=== PATIENT | male | born 1980 | race Caucasian/White ===

== ENCOUNTER 2017-08-30 02:06 | Inpatient (IN) | payer OTHER ==
[2017-08-30] VITALS (25 sets, daily range): BP systolic 107–131; BP diastolic 55–78; PULSE 49–231; RESP 16–24; TEMP 97.6–98.4; O2SAT 85–99
[~2017-08-30 02:06] MED LIST: LEVA500T33 PO; MULTTAB50; Z.0.NO CURRENT MEDS
[2017-08-30] MEDS ORDERED: AMIODARONE HCL 150 MG/3 ML VIAL ONE (02:20)
[2017-08-30] MEDS ORDERED: METO-309 PO (02:21)
[2017-08-30] MEDS ORDERED: LISI2.5T3 PO (02:21)
[2017-08-30] MEDS ORDERED: SODIUM CHLORID 0.9% 500 ML INJ 500 ML IV ONE (02:30)
--- NOTE | 2017-08-30 02:31 | PD ---
HPI Chief Complaint: Chest Pain Time Seen by Provider: 02:15 Travel History International Travel<30 days: No Contact w/Intl Traveler<30days: No Traveled to known affect area: No History of Present Illness HPI The patient is a 36 year old male who presents to the [facility] emergency department with a history of awakening suddenly from sound sleep with palpitations, sensation that his heart was racing, with shortness of breath, and incontinence of stool. The patient reports that he was sweating. The patient immediately came to the emergency department. The patient was noted to have a heart rate in the 230s with a wide complex tachycardia. The patient is awake and alert. The patient denies having any chest pain. He reports that he was well prior to going to sleep. The patient does report having a past medical history of tetralogy of Fallot. The patient has had cardiac surgeries related to this, his most recent cardiac surgery was a pulmonic valve replacement done 3 years ago. On review of systems otherwise, the patient denies having any recent fevers, cough, congestion, neck pain, chest pain or shortness of breath prior to this, abdominal pain, vomiting, diarrhea, urinary symptoms, or neurologic symptoms. [facility] Past Medical History Narrative Medical The patient's past medical history is significant for tetralogy of Fallot, history of hemoptysis, history of anxiety disorder, hypertension. Autoimmune Disease: No Anxiety: Yes (OCCASSIONALLY) Depression: No Heart Rhythm Problems: No Cancer: No Cardiovascular Problems: Yes (tetralogy of fallot - 5 yrs. old when surgery, right arm shunt 8 months old) High Cholesterol: No Chest Pain: Yes Congestive Heart Failure: No Diminished Hearing: No Endocrine: No Genitourinary: No Hypertension: Yes Immune Disorder: No Implanted Vascular Access Dvce: Yes Musculoskeletal: No Neurologic: No Psychiatric: Yes Reproductive: No Respiratory: Yes Sleep Apnea: No Past Surgical History Narrative Surgical The patient's past surgical history is significant a right arm AV fistula, open heart surgery twice, pulmonic valve replacement. 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 ARTERY FROM RIGHT ARM. ) Social History Alcohol Use: No Tobacco Use: No Substance Use: No Allergies-Medications (Allergen,Severity, Reaction): Coded Allergies: No Known Allergies (Verified Allergy, Unknown, 08/30/17) Reported Meds & Prescriptions Reported Meds & Active Scripts Active Reported Multi Vitamin Mens (Multiple Vitamin) Mens Tab DAILY Lisinopril 2.5 Mg Tab Unknown Dose PO DAILY Lopressor (Metoprolol Tartrate) 50 Mg Tab 25 PO DAILY Review of Systems Except as stated in HPI: all other systems reviewed are Neg General / Constitutional: No: Fever Eyes: No: Visual changes HENT: Positive: Lightheadedness, No: Headaches Cardiovascular: Positive: Palpitations, Tachycardia, Diaphoresis, Dyspnea on exertion, No: Chest Pain or Discomfort Respiratory: Positive: Shortness of Breath Gastrointestinal: Positive: Diarrhea, Other (incontinence of stool), No: Nausea , Vomiting, Abdominal Pain, Hematemesis, Hematochezia, Indigestion, Loss of Appetite Genitourinary: No: Dysuria Musculoskeletal: No: Pain Skin: No Rash Neurologic: Positive: Dizziness, No: Weakness, Focal Abnormalities, Change in Mentation, Sensory Disturbance Psychiatric: No: Depression Endocrine: No: Polydipsia Hematologic/Lymphatic: No: Easy Bruising Physical Exam Narrative General: The patient is a well-developed well-nourished male, uncomfortable appearing on arrival, slightly diaphoretic. Head and Neck exam: Head is normocephalic atraumatic. Eyes: EOMI, pupils are equal round and reactive to light. Nose: Midline septum with pink mucous membranes Mouth: Dentition unremarkable. Moist mucus membranes. Posterior oropharynx is not erythematous. No tonsillar hypertrophy. Uvula midline. Airway patent. Neck: No palpable lymphadenopathy. No nuchal rigidity. No thyromegaly. Cardiovascular: Regular sounding tachycardia with a rate in the 200s on telemetry without murmurs, gallops, or rubs audible at this increased rate. Lungs: Clear to auscultation bilaterally. No wheezes, rhonchi, or rales. Abdomen: Soft, without tenderness to palpation in all 4 quadrants of the abdomen. No guarding, rebound, or rigidity. Normal bowel sounds are audible. No tenderness on palpation of McBurney's point. Extremities: No clubbing, cyanosis, or edema. 2+ pulses in all 4 extremities. No calf tenderness on palpation. Back: No costovertebral angle tenderness to palpation. Neurologic Exam: Grossly nonfocal. Skin Exam: No rash noted. Intact skin that is warm and slightly damp. Data Data Last Documented VS Vital Signs Date Time Temp Pulse Resp B/P (MAP) Pulse Ox O2 Delivery O2 Flow Rate FiO2 08/30/17 03:00 79 16 114/59 (77) 98 Nasal Cannula 08/30/17 02:50 3.00 Orders Orders Amiodarone Inj (Cordarone Inj) (08/30/17 02:20) Sodium Chlorid 0.9% 500 Ml Inj (Ns 500 M (08/30/17 02:30) Electrocardiogram (08/30/17 02:24) B-Type Natriuretic Peptide (08/30/17 02:24) Ckmb (Isoenzyme) Profile (08/30/17 02:24) Complete Blood Count With Diff (08/30/17 02:24) Comprehensive Metabolic Panel (08/30/17 02:24) Magnesium (Mg) (08/30/17 02:24) Prothrombin Time / Inr (Pt) (08/30/17 02:24) Act Partial Throm Time (Ptt) (08/30/17 02:24) Troponin I (08/30/17 02:24) Lipase (08/30/17 02:24) Chest, Single Ap (08/30/17 02:24) Ecg Monitoring (08/30/17 02:24) Bilateral Bp Monitoring (08/30/17 02:24) Iv Access Insert/Monitor (08/30/17 02:24) Oximetry (08/30/17 02:24) Oxygen Administration (08/30/17 02:24) Sodium Chloride 0.9% Flush (Ns Flush) (08/30/17 02:30) Consult Cardiology (08/30/17 ) Blood Pressure (08/30/17 02:32) Vital Signs (08/30/17 02:32) Dextrose 5% In Wate... W/Amiodarone Inj (08/30/17 02:32) Sodium Chloride 0.9% Flush (Ns Flush) (08/30/17 02:45) Adenosine Inj (Adenocard Inj) (08/30/17 02:45) Adenosine Inj (Adenocard Inj) (08/30/17 02:45) Midazolam Inj (Versed Inj) (08/30/17 03:00) Midazolam Inj (Versed Inj) (08/30/17 02:50) CKMB (08/30/17 02:30) CKMB% (08/30/17 02:30) (Hub Use Only)Inp Phy Cons/Ref (08/30/17 ) Midazolam Inj (Versed Inj) (08/30/17 03:30) Potassium Chloride Eff (K-Lyte Cl Eff) (08/30/17 03:45) Aspirin Chew (Aspirin Chew) (08/30/17 03:45) Admit Order (Ed Use Only) (08/30/17 03:50) Steamfitter / Telemetry ARTIE.Q8H (08/30/17 03:50) Vital Signs (Adult) Q4H (08/30/17 03:50) Diet Heart Healthy (08/30/17 Breakfast) Activity Oob With Assistance (08/30/17 03:50) Notify Dr: Other (08/30/17 03:50) Labs Laboratory Tests Test 08/30/17 02:30 White Blood Count 13.2 TH/MM3 Red Blood Count 5.39 MIL/MM3 Hemoglobin 15.4 GM/DL Hematocrit 45.7 % Mean Corpuscular Volume 84.8 FL Mean Corpuscular Hemoglobin 28.7 PG Mean Corpuscular Hemoglobin Concent 33.8 % Red Cell Distribution Width 12.9 % Platelet Count 260 TH/MM3 Mean Platelet Volume 9.3 FL Neutrophils (%) (Auto) 52.2 % Lymphocytes (%) (Auto) 37.1 % Monocytes (%) (Auto) 9.0 % Eosinophils (%) (Auto) 1.3 % Basophils (%) (Auto) 0.4 % Neutrophils # (Auto) 6.9 TH/MM3 Lymphocytes # (Auto) 4.9 TH/MM3 Monocytes # (Auto) 1.2 TH/MM3 Eosinophils # (Auto) 0.2 TH/MM3 Basophils # (Auto) 0.1 TH/MM3 CBC Comment DIFF FINAL Differential Comment Prothrombin Time 11.0 SEC Prothromb Time International Ratio 1.1 RATIO Activated Partial Thromboplast Time 23.6 SEC Blood Urea Nitrogen 11 MG/DL Creatinine 1.16 MG/DL Random Glucose 201 MG/DL Total Protein 7.6 GM/DL Albumin 4.2 GM/DL Calcium Level 8.7 MG/DL Magnesium Level 2.5 MG/DL Alkaline Phosphatase 124 U/L Aspartate Amino Transf (AST/SGOT) 37 U/L Alanine Aminotransferase (ALT/SGPT) 54 U/L Total Bilirubin 0.4 MG/DL Sodium Level 138 MEQ/L Potassium Level 3.2 MEQ/L Chloride Level 101 MEQ/L Carbon Dioxide Level 23.2 MEQ/L Anion Gap 14 MEQ/L Estimat Glomerular Filtration Rate 72 ML/MIN Total Creatine Kinase 191 U/L Creatine Kinase MB 2.7 NG/ML Troponin I LESS THAN 0.02 NG/ML B-Type Natriuretic Peptide 47 PG/ML Lipase 87 U/L [facility] Medical Decision Making Medical Screen Exam Complete: Yes Emergency Medical Condition: Yes Medical Record Reviewed: Yes Interpretation(s) Last Impressions Chest X-Ray 08/30/17 0224 Signed Impressions: Service Date/Time: Friday, August 30, 2017 02:40 - CONCLUSION: Minimal bibasilar atelectasis. Neto Ware MD Differential Diagnosis SVT with bundle-branch block, versus V. tach with pulse Narrative Course During the course of the patients emergency department visit, the patients history, examination, and differential diagnosis were reviewed with the patient. The patient was placed on a desk monitor with oximetry and frequent blood pressure monitoring. The patient had IV access obtained and blood work sent for analysis. An EKG was done on arrival back to the room that shows a heart rate in the 230s, but appears to be a wide complex tachycardia. Pacer pads were applied to the patient's chest. The patient was initially provided amiodarone 150 mg IV, normal saline a 500 mL bolus support his blood pressure. Unfortunately, the amiodarone had no effect and the it professional on-call was called regarding this patient's case. He recommended administration of adenosine. Adenosine 6 mg and then 12 mg had no effect to abort this tachycardic rhythm. I then discussed the patient's case again with the it professional who did agree with the plan to proceed with synchronized cardioversion. The patient was provided in total 3.5 mg of Versed for sedation. The patient was cardioverted using synchronized cardioversion at 100 J. This was successful. The patient's repeat ECG reveals a sinus rhythm, right bundle branch block which the patient has had a history of previously. The patients laboratory studies were reviewed and remarkable for a white count of 13.2, hemoglobin 15.4, platelets 260 with 9 monocytes, CMP is remarkable for a potassium of 3.2 which was supplemented orally, glucose 201, alkaline phosphatase 124, he became 191, troponin I less than 0.02, BNP 47, lipase 87. PT 11, PTT 23.6 Radiology studies were reviewed and remarkable for a chest x-ray that shows minimal bibasilar atelectasis. The patients results were discussed with the patient, including the plan of care. I explained that further testing and/ or monitoring is indicated based on the patients history, examination, and/ or laboratory findings. Therefore, I recommended admission for additional evaluation. The patient expressed understanding and was agreeable with this plan. The patient was admitted to the hospital in guarded condition and [facility] Critical Care Narrative Aggregate critical care time was 45 minutes. Time to perform other separately billable procedures was not included in the critical care time. My time did not include minutes spent treating any other patients simultaneously or on activities that did not directly contribute to the patient's treatment. The services I provided to this patient were to treat and/or prevent clinically significant deterioration that could result in: Cardiac arrhythmia that leads to cardiac arrest, versus respiratory failure I provided critical care services requiring my management, as noted below: Chart data review, documentation time, medication orders and management, vital sign assessments/reviewing monitor data, ordering and reviewing lab tests, ordering and interpreting/reviewing x-rays and diagnostic studies, care of the patient and discussion of the patient with the admitting physicians. Procedures Procedure Narrative Synchronized cardioversion: The patient had pacer pads applied to his chest. The patient was sedated with Versed for the procedure. A synchronized cardioversion was done at 100 J. The patient had resolution of his wide complex tachycardia. A repeat ECG reveals a sinus rhythm with a right bundle branch block. Physician Communication Physician Communication The patient's case including history, pertinent physical examination findings, and laboratory studies were discussed with Dr. Perry Fu at 2:39 AM. I explained to him that the patient was given amiodarone 150 mg IV and appears to be in a wide-complex tachycardia with a rate in the 200s with a pulse and a blood pressure of 130 systolic. He recommended that I try administering adenosine. The patient then had adenosine 6 mg IV push without any change in his rhythm followed by 12 mg IV push again without any change in his rhythm. I called Dr. Fu back again at 2:47 AM and we discussed cardioverting the patient. He was agreeable with plan to proceed with synchronized cardioversion. [facility] this [facility]. He did agree to admit the patient to Dr. Dwyer service. Diagnosis Primary Impression: Wide-complex tachycardia Admitting Information Admitting Physician Requests: Admit Philly Vargas MD Aug 30, 2017 02:31
[2017-08-30] MEDS ORDERED: AMIODARONE INJ 150 MG in DEXTROSE 5% IN WATER 100ML INJ 97 ML IV ONE ×2 (02:32)
[2017-08-30] MEDS ORDERED: ADENOSINE IV SOLN 3 MG/ML 2 ML VIAL IV PUSH ONE ×2 (02:45)
[2017-08-30] MEDS ORDERED: SODIUM CHLORIDE 0.9% FLUSH 10 ML FLUSH IVF PRN (02:45)
[2017-08-30] MEDS ORDERED: MIDAZOLAM HCL 5 MG/ML VIAL (1 ML) ONE (02:50)
[2017-08-30 02:53] LABS: AUTOMATED NEUTROPHIL # 6.9 TH/MM3 (1.8-7.7); BASOPHIL # 0.1 TH/MM3 (0-0.2); BASOPHIL % 0.4 % (0.0-2.0); EOSINOPHIL # 0.2 TH/MM3 (0-0.4); EOSINOPHIL % 1.3 % (0.0-4.0); HEMATOCRIT 45.7 % (39.0-51.0); HEMOGLOBIN 15.4 GM/DL (13.0-17.0); LYMPH % 37.1 % (9.0-44.0); LYMPHOCYTE # 4.9 TH/MM3 (1.0-4.8); MEAN CELL VOLUME 84.8 FL (80.0-100.0); MEAN CORPUSCULAR HEMOGLOBIN 28.7 PG (27.0-34.0); MEAN CORPUSCULAR HGB CONC 33.8 % (32.0-36.0); MEAN PLATELET VOLUME 9.3 FL (7.0-11.0); MONOCYTE # 1.2 TH/MM3 (0-0.9); NEUT % 52.2 % (16.0-70.0); PLATELET COUNT 260 TH/MM3 (150-450); RED BLOOD COUNT 5.39 MIL/MM3 (4.50-5.90); RED CELL DISTRIBUTION WIDTH 12.9 % (11.6-17.2); WHITE BLOOD COUNT 13.2 TH/MM3 (4.0-11.0)
[2017-08-30] MEDS ORDERED: MIDAZOLAM HCL 5 MG/5 ML VIAL IV PUSH ONE (03:00)
--- NOTE | 2017-08-30 03:01 | RADRPT ---
EXAM DATE/TIME: 08/30/2017 02:40 [place] COMPARISON: No previous studies available for comparison. INDICATIONS : Rapid heart rate MEDICAL HISTORY : Hypertension. SURGICAL HISTORY : None. ENCOUNTER: Initial ACUITY: 1 day PAIN SCORE: 8/10 LOCATION: Bilateral chest FINDINGS: There is mild atelectasis of both bases. No effusion seen. No pneumothorax. Heart size upper limits of normal. Patient has had previous median sternotomy and valve replacement. CONCLUSION: Minimal bibasilar atelectasis. Neto Ware MD on August 30, 2017 at 2:59 Board Certified Radiologist. This report was verified electronically.
[2017-08-30 03:03] LABS: ALKALINE PHOSPHATASE 124 U/L (45-117); TOTAL BILIRUBIN ADULT 0.4 MG/DL (0.2-1.0); TOTAL PROTEIN 7.6 GM/DL (6.4-8.2); TROPONIN I LESS THAN 0.02 NG/ML (0.02-0.05)
[2017-08-30 03:05] LABS: ALBUMIN 4.2 GM/DL (3.4-5.0); ALT (GPT) 54 U/L (12-78); AST (GOT) 37 U/L (15-37); BICARBONATE 23.2 MEQ/L (21.0-32.0); BLOOD UREA NITROGEN 11 MG/DL (7-18); CALCIUM 8.7 MG/DL (8.5-10.1); CHLORIDE 101 MEQ/L (98-107); CREATININE 1.16 MG/DL (0.60-1.30); GLOMERULAR FILTRATION RATE 72 ML/MIN (>89); GLUCOSE,RANDOM 201 MG/DL (74-106); LIPASE 87 U/L (73-393); MAGNESIUM 2.5 MG/DL (1.5-2.5); SODIUM (NA) 138 MEQ/L (136-145)
[2017-08-30 03:13] LABS: INTERNATIONAL NORMALIZED RATIO 1.1 RATIO
[2017-08-30] MEDS ORDERED: MIDAZOLAM HCL 2 MG/2 ML VIAL IV PUSH ONE (03:30)
[2017-08-30] MEDS ORDERED: POTASSIUM CHLORIDE 25 MEQ EFFERVESCENT TAB PO ONE (03:45)
[2017-08-30] MEDS ORDERED: ASPIRIN 81 MG CHEW TAB CHEW ONE (03:45)
[2017-08-30] MEDS ORDERED: MULTTAB50 (05:44)
--- NOTE | 2017-08-30 08:49 | HHI.HP ---
HPI Service [facility] Hospitalists Primary Care Physician Perry Fu MD Admission Diagnosis Wide complex tachycardia, h/o Tetrology of Fallot Chief Complaint: palpitations Travel History International Travel<30 Days: No Contact w/Intl Traveler <30 Da: No Traveled to Known Affected Are: No History of Present Illness Pt is 36 yo with hx tetralogy of fallot, surgery at age 5, then 4 yrs ago had pulmonary valve replaced at [facility]. Was doing very well and work out in weightroom regularly. Hansen a little dizzy over past week. Has been taking his prescribes meds. Missed a week of meds but that was several months ago. No cp or sob. Awoke in middle of night with palpitations/dizziness/ diaphoresis. On arrival here was found to have WCT. Unresponsive to amiodarone and adenosine. ED physician and cardiology decided on cardioversion. It was successful and pt went back into sinus. He is doing ok this morning. Review of Systems Other dizzy palpitations diaphoresis Past Family Social History Past Medical History Tetralogy of fallot. 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 right lower lobe lung bleeding pulmonary valve surgery 4 yrs ago anxiety Reported Medications Reported Meds & Active Scripts Active Reported Multi Vitamin Mens (Multiple Vitamin) Mens Tab DAILY Lisinopril 2.5 Mg Tab Unknown Dose PO DAILY addendum: pt only taking toprol xl 25mg daily. Allergies: Coded Allergies: No Known Allergies (Verified Allergy, Unknown, 08/30/17) Family History nc Social History no tob rare etoh Physical Exam Vital Signs heart reg lung cta abd s/nt ext no edema Vital Signs Date Time Temp Pulse Resp B/P (MAP) Pulse Ox O2 Delivery O2 Flow Rate FiO2 08/30/17 06:00 95 Room Air 08/30/17 06:00 82 08/30/17 06:00 98.1 76 18 129/72 (91) 95 08/30/17 05:23 76 08/30/17 05:15 08/30/17 03:59 82 16 120/63 (82) 98 Nasal Cannula 2.00 08/30/17 03:00 79 16 114/59 (77) 98 Nasal Cannula 08/30/17 02:50 99 3.00 08/30/17 02:50 99 Nasal Cannula 3.00 08/30/17 02:33 104 114/67 (83) 08/30/17 02:33 92 20 114/67 (83) 98 08/30/17 02:28 98 20 115/77 (90) 98 Nasal Cannula 2.00 08/30/17 02:24 159 20 131/78 (95) 98 Nasal Cannula 2.00 08/30/17 02:22 203 22 131/78 (95) 97 Nasal Cannula 2.00 08/30/17 02:17 235 20 91 Nasal Cannula 2.00 08/30/17 02:13 231 24 85 Laboratory Laboratory Tests Test 08/30/17 02:30 White Blood Count 13.2 Red Blood Count 5.39 Hemoglobin 15.4 Hematocrit 45.7 Mean Corpuscular Volume 84.8 Mean Corpuscular Hemoglobin 28.7 Mean Corpuscular Hemoglobin Concent 33.8 Red Cell Distribution Width 12.9 Platelet Count 260 Mean Platelet Volume 9.3 Neutrophils (%) (Auto) 52.2 Lymphocytes (%) (Auto) 37.1 Monocytes (%) (Auto) 9.0 Eosinophils (%) (Auto) 1.3 Basophils (%) (Auto) 0.4 Neutrophils # (Auto) 6.9 Lymphocytes # (Auto) 4.9 Monocytes # (Auto) 1.2 Eosinophils # (Auto) 0.2 Basophils # (Auto) 0.1 CBC Comment DIFF FINAL Differential Comment Prothrombin Time 11.0 Prothromb Time International Ratio 1.1 Activated Partial Thromboplast Time 23.6 Blood Urea Nitrogen 11 Creatinine 1.16 Random Glucose 201 Total Protein 7.6 Albumin 4.2 Calcium Level 8.7 Magnesium Level 2.5 Alkaline Phosphatase 124 Aspartate Amino Transf (AST/SGOT) 37 Alanine Aminotransferase (ALT/SGPT) 54 Total Bilirubin 0.4 Sodium Level 138 Potassium Level 3.2 Chloride Level 101 Carbon Dioxide Level 23.2 Anion Gap 14 Estimat Glomerular Filtration Rate 72 Total Creatine Kinase 191 Creatine Kinase MB 2.7 Troponin I LESS THAN 0.02 B-Type Natriuretic Peptide 47 Lipase 87 Result Diagram: 08/30/1722908/30/17229 Caprini VTE Risk Assessment Caprini VTE Risk Assessment: No/Low Risk (score <= 1) Caprini Risk Assessment Model Point Value = 1 Point Value = 2 Point Value = 3 Point Value = 5 Age 41-60 Minor surgery BMI > 25 kg/m2 Swollen legs Varicose veins or History of unexplained or recurrent spontaneous Oral contraceptives or hormone replacement Sepsis (< 1 month) Serious lung disease, including pneumonia (< 1 month) Abnormal pulmonary function Acute myocardial infarction Congestive heart failure (< 1 month) History of inflammatory bowel disease Medical patient at bed rest Age 61-74 Arthroscopic surgery Major open surgery (> 45 min) Laparoscopic surgery (> 45 min) Malignancy Confined to bed (> 72 hours) Immobilizing plaster cast Central venous access Age >= 75 History of VTE Family history of VTE Factor V Leiden Prothrombin [id number] Lupus anticoagulant Anticardiolipin antibodies Elevated serum homocysteine Heparin-induced thrombocytopenia Other congenital or acquired thrombophilia Stroke (< 1 month) Elective arthroplasty Hip, pelvis, or leg fracture Acute spinal cord injury (< 1 month) Prophylaxis Regimen Total Risk Factor Score Risk Level Prophylaxis Regimen 0-1 Low Early ambulation 2 Moderate Order ONE of the following: *Sequential Compression Device (SCD) *Heparin 5000 units SQ BID 3-4 Higher Order ONE of the following medications: *Heparin 5000 units SQ TID *Enoxaparin/Lovenox 40 mg SQ daily (WT < 150 kg, CrCl > 30 mL/min) *Enoxaparin/Lovenox 30 mg SQ daily (WT < 150 kg, CrCl > 10-29 mL/min) *Enoxaparin/Lovenox 30 mg SQ BID (WT < 150 kg, CrCl > 30 mL/min) AND/OR *Sequential Compression Device (SCD) 5 or more Highest Order ONE of the following medications: *Heparin 5000 units SQ TID (Preferred with Epidurals) *Enoxaparin/Lovenox 40 mg SQ daily (WT < 150 kg, CrCl > 30 mL/min) *Enoxaparin/Lovenox 30 mg SQ daily (WT < 150 kg, CrCl > 10-29 mL/min) *Enoxaparin/Lovenox 30 mg SQ BID (WT < 150 kg, CrCl > 30 mL/min) AND *Sequential Compression Device (SCD) Assessment and Plan Problem List: (1) Wide-complex tachycardia ICD Codes: I47.2 - Ventricular tachycardia Status: Acute Plan: Pt is 36 yo with Tetralogy of Fallot. Initial surgery at 5 yrs. had pulmonary stenosis/right ventricular outflow tract dilation. Underwent pulmonary valve surgery at [facility] 4 yrs ago. Pt has been doing very well and developed palpitations/diaphoresis/dizziness Found to have WCT last night. unresponsive to amiodarone and adenosine. It responded to cardioversion. NSR now. hypokalemia Pt to see DR Fu today and decide on management cont home meds replace lytes and recheck. (2) Tetralogy of Fallot ICD Codes: Q21.3 - Tetralogy of Fallot Status: Chronic Physician Certification 2 Midnight Certification Type: Admission for Inpatient Services Order for Inpatient Services 3The services are ordered in accordance with Medicare regulations or non- Medicare payer requirements, as applicable. In the case of services not specified as inpatient-only, they are appropriately provided as inpatient services in accordance with the 2-midnight benchmark. Estimated LOS (days): 3 3 days is the estimated time the patient will need to remain in the hospital, assuming treatment plan goals are met and no additional complications. Post-Hospital Plan: Home Xavier Dwyer MD Aug 30, 2017 08:49
[2017-08-30] MEDS: METOPROLOL TARTRATE 100 MG TAB PO SCH ×2 (09:48→20:36)
--- NOTE | 2017-08-30 11:20 | MB ---
cc: YAZMIN GREEN MD DATE OF CONSULTATION: 08/30/2017 HISTORY OF PRESENT ILLNESS This is a 36-year-old gentleman who presents to the hospital with dizziness and palpitations, came to the emergency department where he was found to have wide complex tachycardia. He was initially given one dose amiodarone without success. A trial of adenosine was also given with no change and was electrically cardioverted back to sinus rhythm. He is currently feeling well. No chest pain was present. He did note initially bowel incontinence at the onset of his palpitations along with diaphoresis. PAST MEDICAL HISTORY Tetralogy of Fallot with repair age 5. Four years ago he developed significant pulmonary insufficiency and underwent pulmonary valve replacement and presumably with shinto of normal hemodynamics and right ventricular function. Prior to last night, he had been doing well. He has been working out on a regular basis. He has had no change in his exercise tolerance. He denies any chest pain. No orthopnea or PND has been present and has otherwise felt well. Past medical history has otherwise been significant for mild hypertension. MEDICATIONS Medications at home have included- 1. Lisinopril 2.5 mg daily. 2. Metoprolol tartrate 50 mg once a day. ALLERGIES NONE. SOCIAL HISTORY The patient does not smoke, rarely drinks alcohol, does not use recreational drugs. PHYSICAL EXAMINATION GENERAL: He is awake and alert. VITAL SIGNS: Blood pressure is 122/70, pulse is 70 and regular. NECK: There is no neck vein distension. Carotids are normal. LUNGS: Clear. CARDIOVASCULAR: Reveals a regular rate and rhythm. P2 is accentuated. There is a 1/6 systolic murmur at the right sternal border. No diastolic murmur is noted. LABORATORY EXAMINATION Significant for a potassium of 3.2. His H&H is normal. Initial troponin and BNP are both within normal limits. ASSESSMENT The patient has had a run of ventricular tachycardia. We will restart his metoprolol at 100 mg twice daily and hold his lisinopril. I have ordered an echocardiogram to reevaluate his left ventricular function. I also ordered a Lexiscan on the unlikely event that coronary disease is present, but in the absence of chest pain and given this patient's age I think that is unlikely. Also, we will aggressively replace his potassium and recheck a BMP in the morning. MD ANEESH Melendez/KATHY /9:10 AM /10:51 AM
[2017-08-30 12:05] LABS: BICARBONATE 27.5 MEQ/L (21.0-32.0); CALCIUM 8.8 MG/DL (8.5-10.1); CREATININE 0.82 MG/DL (0.60-1.30); MAGNESIUM 2.1 MG/DL (1.5-2.5); PHOSPHORUS 3.6 MG/DL (2.5-4.9)
[2017-08-30] MEDS: POTASSIUM CHLORIDE 10 MEQ CONTROLLED RELEASE TAB PO SCH ×2 (13:28→17:41)
[2017-08-30] MEDS ORDERED: REGADENOSON INJ 0.4 MG/5 ML SYR ONE (14:51)
--- NOTE | 2017-08-30 16:11 | RADRPT ---
EXAM DATE/TIME: 08/30/2017 14:23 [place] COMPARISON: CHEST SINGLE AP, August 30, 2017, 2:40. INDICATIONS : Right bundle branch block. Abnormal EKG. DOSE: 25.9 mCi Tc99m Myoview at stress. 8.1 mCi Tc99m Myoview at rest. 0.4 mg Lexiscan STRESS SYMPTOMS: Shortness of breath. EJECTION FRACTION: 55% MEDICAL HISTORY : Hypertension. SURGICAL HISTORY : Tetralogy of fallot. ENCOUNTER: Initial ACUITY: 3 days PAIN SCALE: 4/10 LOCATION: Bilateral chest TECHNIQUE: The patient underwent pharmacologic stress with infusion of prescribed dose. Continuous ECG tracing was monitored during stress. Gated SPECT imaging was performed after stress and conventional SPECT i maging was performed at rest. The examination was performed on a SPECT/CT scanner, both attenuation and non-corrected datasets were reviewed. FINDINGS: DISTRIBUTION: The maximum perfused segment at stress is in the anterior wall. PERFUSION STUDY: The pattern of perfusion at stress is fairly intact and significant bowel uptake which overlaps the p osterior basal wall makes evaluation of this site limited. There is breast attenuation artifact overl apping the anterior wall particularly towards the lateral portion. GATED STUDY: There is intact wall motion and thickening without hypokinetic or dyskinetic segments. CONCLUSION: No appreciable ischemia. RISK CATEGORY: Low (<1% Annual Mortality Rate) Kimberlee Her MD on August 30, 2017 at 16:06 Board Certified Radiologist. This report was verified electronically.
[2017-08-31] VITALS (25 sets, daily range): BP systolic 101–126; BP diastolic 54–69; PULSE 51–74; RESP 16–20; TEMP 97.5–98.8; O2SAT 93–96
[2017-08-31 06:50] LABS: BICARBONATE 28.4 MEQ/L (21.0-32.0); CALCIUM 8.9 MG/DL (8.5-10.1); CREATININE 1.06 MG/DL (0.60-1.30)
[2017-08-31] MEDS: POTASSIUM CHLORIDE 10 MEQ CONTROLLED RELEASE TAB PO SCH (08:08)
[2017-08-31] MEDS: METOPROLOL TARTRATE 100 MG TAB PO SCH (08:08)
--- NOTE | 2017-08-31 08:43 | HHI.PR ---
Subjective Remarks doing ok no complaints Objective Vitals heart reg lung cta abd s/nt ext no edema Vital Signs Date Time Temp Pulse Resp B/P (MAP) Pulse Ox O2 Delivery O2 Flow Rate FiO2 08/31/17 07:45 97.7 61 18 114/61 (78) 95 08/31/17 07:45 95 Room Air 08/31/17 07:45 66 08/31/17 06:07 59 08/31/17 05:57 55 08/31/17 04:20 59 08/31/17 03:25 97.5 62 16 120/69 (86) 93 08/31/17 03:16 54 08/31/17 02:04 61 08/31/17 01:06 58 08/31/17 00:26 60 08/30/17 23:01 98.0 59 17 107/55 (72) 97 08/30/17 23:01 61 08/30/17 22:15 49 08/30/17 21:10 68 08/30/17 20:20 68 08/30/17 19:20 98.4 68 18 107/58 (74) 96 08/30/17 19:20 96 Room Air 08/30/17 19:20 61 08/30/17 18:00 62 08/30/17 17:00 62 08/30/17 16:37 97.6 67 16 115/61 (79) 95 08/30/17 16:37 67 08/30/17 13:00 64 08/30/17 12:00 62 08/30/17 11:00 61 08/30/17 11:00 98.3 61 16 119/59 (79) 93 08/30/17 10:00 66 08/30/17 09:00 71 Result Diagram: 08/30/17 0230 08/31/17 0545 A/P Problem List: (1) Wide-complex tachycardia ICD Codes: I47.2 - Ventricular tachycardia Status: Acute Plan: Pt is 36 yo with Tetralogy of Fallot. Initial surgery at 5 yrs. had pulmonary stenosis/right ventricular outflow tract dilation. Underwent pulmonary valve surgery at [facility] 4 yrs ago. Pt has been doing very well and developed palpitations/diaphoresis/dizziness Found to have WCT felt to be VT. unresponsive to amiodarone and adenosine. It responded to cardioversion. NSR now. hypokalemia corrected lexiscan neg for ischemia Dr Fu following on 100mg bid metoprolol echo pending dc when ok with cardiology addendum: pt was only taking 25mg daily of metoprolol...dr fu lowered 100mg bid down to 50mg bid due to dizziness. plan for ?eps by Friday. (2) Tetralogy of Fallot ICD Codes: Q21.3 - Tetralogy of Fallot Status: Chronic Xavier Dwyer MD Aug 31, 2017 08:43
--- NOTE | 2017-08-31 08:54 | PD.CARD.PN ---
Subjective Subjective Remarks Feels OK. A little dizzy when standing from lying posture. Objective Medications Current Medications Medications (Trade) Dose Ordered Sig/Souleymane Route Start Time Stop Time Status Last Admin (NS Flush) 2 ml UNSCH PRN IVF 08/30/17 02:30 (NS Flush) 2 ml UNSCH PRN IVF 08/30/17 02:45 (Lopressor) 100 mg Q12HR PO 08/30/17 09:30 08/31/17 08:08 Vital Signs / I&O Vital Signs Date Time Temp Pulse Resp B/P (MAP) Pulse Ox O2 Delivery O2 Flow Rate FiO2 08/31/17 08:00 64 08/31/17 07:45 97.7 61 18 114/61 (78) 95 08/31/17 07:45 95 Room Air 08/31/17 07:45 66 08/31/17 06:07 59 08/31/17 05:57 55 08/31/17 04:20 59 08/31/17 03:25 97.5 62 16 120/69 (86) 93 08/31/17 03:16 54 08/31/17 02:04 61 08/31/17 01:06 58 08/31/17 00:26 60 08/30/17 23:01 98.0 59 17 107/55 (72) 97 08/30/17 23:01 61 08/30/17 22:15 49 08/30/17 21:10 68 08/30/17 20:20 68 08/30/17 19:20 98.4 68 18 107/58 (74) 96 08/30/17 19:20 96 Room Air 08/30/17 19:20 61 08/30/17 18:00 62 08/30/17 17:00 62 08/30/17 16:37 97.6 67 16 115/61 (79) 95 08/30/17 16:37 67 08/30/17 13:00 64 08/30/17 12:00 62 08/30/17 11:00 61 08/30/17 11:00 98.3 61 16 119/59 (79) 93 08/30/17 10:00 66 08/30/17 09:00 71 I/O 08/30/17 08/30/17 08/30/17 08/31/17 08/31/17 08/31/17 07:00 15:00 23:00 07:00 15:00 23:00 Intake Total 500 ml 1100 ml 480 ml Output Total 1800 ml 925 ml Balance 500 ml -700 ml -445 ml Intake Oral 1100 ml 480 ml IV Total 500 ml Output Urine Total 1800 ml 925 ml # Voids 2 # Bowel Movements 0 Physical Exam Lungs clear RRR murmur same Laboratory Laboratory Tests Test 08/30/17 10:41 08/31/17 05:45 Blood Urea Nitrogen 10 MG/DL 12 MG/DL Creatinine 0.82 MG/DL 1.06 MG/DL Random Glucose 104 MG/DL 94 MG/DL Calcium Level 8.8 MG/DL 8.9 MG/DL Phosphorus Level 3.6 MG/DL Magnesium Level 2.1 MG/DL Sodium Level 140 MEQ/L 139 MEQ/L Potassium Level 4.2 MEQ/L 4.1 MEQ/L Chloride Level 106 MEQ/L 104 MEQ/L Carbon Dioxide Level 27.5 MEQ/L 28.4 MEQ/L Anion Gap 7 MEQ/L 7 MEQ/L Estimat Glomerular Filtration Rate 108 ML/MIN 80 ML/MIN Assessment and Plan Assessment and Plan NSR without ectopy. K+ back to normal. Will d/c supplement. BP stable but in view of dizziness will decrease dose of metoprolol to 50 mg bid. Was taking 25 mg metoprolol succinate at home. BNP 47. await echo. Lexiscan normal Consider EPconsfriday for provocative testing Perry Fu MD Aug 31, 2017 08:54
--- NOTE | 2017-08-31 13:44 | ECHRPT ---
Indication: CARDIOMYOPATHY CONCLUSIONS The left ventricular systolic function is normal with an estimated ejection fraction in the range of 55-60%. The right ventricle is mildly dilated. The right ventricular systoilc function is moderately decreased. [id number]-[id number] mitral valve regurgitation. There is mild to moderate tricuspid valve regurgitation. The pulmonary valve prosthesis is grossly normal. Mild pulmonary valve regurgitation. BP: 120 / 69 HR: 59 Rhythm: Sinus MEASUREMENTS (Male / Female) Normal Values Technical Quality:Fair 2D ECHO LV Diastolic Diameter PLAX 5.5 cm 4.2 - 5.9 / 3.9 - 5.3 cm LV Systolic Diameter PLAX 3.7 cm IVS Diastolic Thickness 0.8 cm 0.6 - 1.0 / 0.6 - 0.9 cm LVPW Diastolic Thickness 0.8 cm 0.6 - 1.0 / 0.6 - 0.9 cm LV Relative Wall Thickness 0.3 RV Internal Dim ED PLAX 4.4 cm LVOT Diameter 2.1 cm Aortic Root Diameter 3.6 cm LA Systolic Diameter LX 4.1 cm 3.0 - 4.0 / 2.7 - 3.8 cm M-MODE AV Cusp Separation MM 2.5 cm DOPPLER AV Peak Velocity 108.0 cm/s AV Peak Gradient 4.7 mmHg AV Mean Gradient 3.0 mmHg AV Velocity Time Integral 21.6 cm LVOT Peak Velocity 86.5 cm/s LVOT Peak Gradient 3.0 mmHg LVOT Velocity Time Integral 18.0 cm AV Area Cont Eq vti 2.9 cm AV Area Cont Eq pk 2.8 cm Mitral E Point Velocity 102.0 cm/s Mitral A Point Velocity 59.8 cm/s Mitral E to A Ratio 1.7 LV E' Lateral Velocity 15.6 cm/s Mitral E to LV E' Lateral Ratio 6.5 LV E' Septal Velocity 6.7 cm/s Mitral E to LV E' Septal Ratio 15.2 TR Peak Velocity 252.0 cm/s TR Peak Gradient 25.4 mmHg Right Atrial Pressure 10.0 mmHg Pulmonary Artery Systolic Pressu 35.4 mmHg Right Ventricular Systolic Press 35.4 mmHg PV Peak Velocity 222.0 cm/s PV Peak Gradient 19.7 mmHg RVOT Peak Velocity 59.7 cm/s PV Area Cont Eq vti 0.8 cm PV Area Cont Eq pk 0.8 cm QpQs Shunt Ratio 0.7 FINDINGS LEFT VENTRICLE Normal left ventricular size. Wall thickness is normal. The left ventricular systolic function is normal with an estimated ejection fraction in the range of 55-60%. RIGHT VENTRICLE The right ventricle is mildly dilated. The right ventricular systoilc function is moderately decreased. LEFT ATRIUM The left atrial size is mildly dilated. RIGHT ATRIUM The right atrial size is moderately dilated. ATRIAL SEPTUM Normal atrial septal thickness. AORTA The aortic root and proximal ascending aorta are normal in size on limited imaging. MITRAL VALVE Mild thickening of the mitral valve leaflets. No mitral valve stenosis. Hwgxp-wl-iqsk mitral valve regurgitation. AORTIC VALVE Trileaflet aortic valve. No aortic valve regurgitation. No aortic valve stenosis. TRICUSPID VALVE Structurally normal tricuspid valve. There is mild to moderate tricuspid valve regurgitation. The estimated pulmonary arterial pressure is 35 mmHg. PULMONARY VALVE The pulmonary valve prosthesis is grossly normal Mild pulmonary valve regurgitation. VESSELS The inferior vena cava is normal in size. PERICARDIUM No pericardial effusion. Keaton Correia DO (Electronically Signed) Final Date:31 August 2017 13:43
--- NOTE | 2017-08-31 14:00 | EKG ---
Date Performed: 08/30/2017 Time Performed: 02:14:31 PTAGE: 36 years EKG: WIDE COMPLEX TACHYCARDIA POSSIBLE SUPRAVENTRICULAR TACHYCARDIA WITH ABBEARANCY VERSUS VENTR ICULAR TACHYCARDIA The arrhythmia is new from the prior tracing ABNORMAL ECG PREVIOUS TRACING : 07/22/2013 23.56 DOCTOR: Varun Vargas Interpretating Date/Time 08/31/2017 13:58:51
--- NOTE | 2017-08-31 14:02 | EKG ---
Date Performed: 08/30/2017 Time Performed: 02:57:57 PTAGE: 36 years EKG: Sinus rhythm WITH FIRST DEGREE AV BLOCK RIGHT BUNDLE BRANCH BLOCK OLD INFERIOR MYOCARDIAL INFARCTION Compared to PREVIOUS TRACING , patient is no longer in what was suspected to be ventricular tachycard ia PREVIOUS TRACIN08/30/2017 02.14 DOCTOR: Varun Vargas Interpretating Date/Time 08/31/2017 14:00:09
[2017-08-31] MEDS ORDERED: METOPROLOL TARTRATE 100 MG TAB PO SCH (21:00)
[2017-09-01] VITALS (26 sets, daily range): BP systolic 11–120; BP diastolic 58–72; PULSE 51–69; RESP 16–18; TEMP 97.3–97.9; O2SAT 95–97
--- NOTE | 2017-09-01 08:07 | PD.CARD.PN ---
Subjective Subjective Remarks Feels OK. Dizziness resolved. Objective Medications Current Medications Medications (Trade) Dose Ordered Sig/Souleymane Route Start Time Stop Time Status Last Admin (NS Flush) 2 ml UNSCH PRN IVF 08/30/17 02:30 (NS Flush) 2 ml UNSCH PRN IVF 08/30/17 02:45 (Lopressor) 50 mg Q12HR PO 08/31/17 21:00 08/31/17 20:13 Vital Signs / I&O Vital Signs Date Time Temp Pulse Resp B/P (MAP) Pulse Ox O2 Delivery O2 Flow Rate FiO2 09/01/17 06:02 60 09/01/17 05:14 58 09/01/17 04:02 59 09/01/17 03:21 97.9 57 18 1158 (42) 97 09/01/17 03:21 54 09/01/17 02:10 58 09/01/17 01:18 59 09/01/17 00:47 58 08/31/17 23:41 58 08/31/17 23:41 98.0 52 17 115/54 (74) 96 08/31/17 22:13 55 08/31/17 21:18 60 08/31/17 20:07 65 08/31/17 19:00 97.9 68 18 125/69 (87) 94 08/31/17 19:00 66 08/31/17 18:00 74 08/31/17 17:00 62 08/31/17 16:00 66 08/31/17 15:00 57 08/31/17 15:00 98.8 51 20 126/62 (83) 95 08/31/17 14:00 52 08/31/17 13:00 58 08/31/17 12:00 58 08/31/17 11:00 60 08/31/17 11:00 98.1 57 20 101/54 (70) 94 08/31/17 10:00 56 08/31/17 09:00 56 I/O 08/31/17 08/31/17 08/31/17 09/01/17 09/01/17 09/01/17 07:00 15:00 23:00 07:00 15:00 23:00 Intake Total 480 ml 720 ml 240 ml Output Total 925 ml 1250 ml Balance -445 ml -530 ml 240 ml Intake Oral 480 ml 720 ml 240 ml Output Urine Total 925 ml 1250 ml # Voids 2 # Bowel Movements 0 Physical Exam Lungs clear RRR murmur same Assessment and Plan Assessment and Plan NSR without ectopy. Echo shows mildly dilated RV with mild dysfunction. Pulmonic valve OK Consult EP in AM Perry Fu MD Sep 01, 2017 08:07
--- NOTE | 2017-09-01 08:44 | HHI.PR ---
Subjective Remarks No new complaints Pt with NSR on telemetry Objective Vitals Vital Signs Date Time Temp Pulse Resp B/P (MAP) Pulse Ox O2 Delivery O2 Flow Rate FiO2 09/01/17 08:27 97.6 51 16 114/58 (76) 95 09/01/17 08:00 51 09/01/17 07:00 54 09/01/17 06:02 60 09/01/17 05:14 58 09/01/17 04:02 59 09/01/17 03:21 97.9 57 18 11/58 (42) 97 09/01/17 03:21 54 09/01/17 02:10 58 09/01/17 01:18 59 09/01/17 00:47 58 08/31/17 23:41 58 08/31/17 23:41 98.0 52 17 115/54 (74) 96 08/31/17 22:13 55 08/31/17 21:18 60 08/31/17 20:07 65 08/31/17 19:00 97.9 68 18 125/69 (87) 94 08/31/17 19:00 66 08/31/17 18:00 74 08/31/17 17:00 62 08/31/17 16:00 66 08/31/17 15:00 57 08/31/17 15:00 98.8 51 20 126/62 (83) 95 08/31/17 14:00 52 08/31/17 13:00 58 08/31/17 12:00 58 08/31/17 11:00 60 08/31/17 11:00 98.1 57 20 101/54 (70) 94 08/31/17 10:00 56 08/31/17 09:00 56 Result Diagram: 08/30/17 0230 08/31/17 0545 Other Results Laboratory Tests Test 08/30/17 10:41 08/31/17 05:45 Blood Urea Nitrogen 10 MG/DL 12 MG/DL Creatinine 0.82 MG/DL 1.06 MG/DL Random Glucose 104 MG/DL 94 MG/DL Calcium Level 8.8 MG/DL 8.9 MG/DL Phosphorus Level 3.6 MG/DL Magnesium Level 2.1 MG/DL Sodium Level 140 MEQ/L 139 MEQ/L Potassium Level 4.2 MEQ/L 4.1 MEQ/L Chloride Level 106 MEQ/L 104 MEQ/L Carbon Dioxide Level 27.5 MEQ/L 28.4 MEQ/L Anion Gap 7 MEQ/L 7 MEQ/L Estimat Glomerular Filtration Rate 108 ML/MIN 80 ML/MIN Imaging Last Impressions Chest X-Ray 08/30/17 0224 Signed Impressions: Service Date/Time: Wednesday, August 30, 2017 02:40 - CONCLUSION: Minimal bibasilar atelectasis. Neto Ware MD Myocardial Perfusion Scan Nuc Med 08/30/17 0000 Signed Impressions: Service Date/Time: Wednesday, August 30, 2017 14:23 - CONCLUSION: No appreciable ischemia. RISK CATEGORY: Low (<1%% Annual Mortality Rate) Kimberlee Her MD Objective Remarks General: NAD, AAOx3 Chest: CTA Cardiac: Regular Abd: +BS, soft ND/NT Ext: No edema Procedures 2D echo (08/31/17) - Estimated EF 55-60%. - The right ventricle is mildly dilated. - The right ventricular systolic function is moderately decreased. - Pogxo-lc-lsyw mitral valve regurgitation. - There is mild to moderate tricuspid valve regurgitation. - The pulmonary valve prosthesis is grossly normal. - Mild pulmonary valve regurgitation. A/P Problem List: (1) Wide-complex tachycardia ICD Codes: I47.2 - Ventricular tachycardia Status: Acute Plan: -Pt is 36 yo male with Tetralogy of Fallot. His initial surgery was at 5 yrs old. 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 He underwent pulmonary valve surgery at [facility] 4 yrs ago. - Pt has been doing very well up until the week prior to admission when he started to develop palpitations/diaphoresis/dizziness - He presented to the ED after awakening suddenly from sound sleep with palpitations, sensation that his heart was racing, with shortness of breath, and incontinence of stool. In the ED he was noted to have a heart rate in the 230s with a wide complex tachycardia, felt to be VT. - Pt was given amiodarone and adenosine which did not convert him. - Pt then received synchronized cardioversion in the ED and converted to NSR. - Cardiology is following. - Pt underwent evaluation with nuclear stress test on 08/30 which was negative. - Pt is on Metoprolol 50mg BID currently. Pt was reportedly only taking 25mg daily of metoprolol as an outpt. Dr Fu had lowered him from 100mg bid down to 50mg BID due to dizziness as an outpt - 2D echo (08/31/17) - Estimated EF 55-60%. - The right ventricle is mildly dilated. - The right ventricular systolic function is moderately decreased. - Rzgqd-gg-etwk mitral valve regurgitation. - There is mild to moderate tricuspid valve regurgitation. - The pulmonary valve prosthesis is grossly normal. - Mild pulmonary valve regurgitation. - Pt planned for EP consult tomorrow - Cont. telemetry monitoring - Supportive care (2) Tetralogy of Fallot ICD Codes: Q21.3 - Tetralogy of Fallot Status: Chronic Assessment and Plan Patient examined. Assessment and plan formulated with Esme Guerrero PA-C. I agree with the above. Pt admitted with Vtach. Pt underwent cardioversion in ER. HR currently stable Awaiting EP consultation Esme Guerrero Sep 01, 2017 08:44 Pieter Bradley DO Sep 01, 2017 11:27
[2017-09-01] MEDS: METOPROLOL TARTRATE 50 MG TAB PO SCH ×2 (09:34→21:40)
[2017-09-01] MEDS: SODIUM CHLORIDE 0.9% FLUSH 10 ML FLUSH IVF PRN (21:40)
[2017-09-02] VITALS (27 sets, daily range): BP systolic 113–137; BP diastolic 55–79; PULSE 54–75; RESP 16–20; TEMP 97.3–98; O2SAT 94–97
--- NOTE | 2017-09-02 08:48 | HHI.PR ---
Subjective Remarks No new complaints. Objective Vitals Vital Signs Date Time Temp Pulse Resp B/P (MAP) Pulse Ox O2 Delivery O2 Flow Rate FiO2 09/02/17 06:00 61 09/02/17 05:00 54 09/02/17 04:00 97.5 57 16 113/55 (74) 94 09/02/17 04:00 55 09/02/17 03:00 58 09/02/17 02:00 58 09/02/17 01:00 54 09/02/17 00:00 57 09/01/17 23:00 54 09/01/17 23:00 97.3 58 16 114/60 (78) 95 09/01/17 22:00 60 09/01/17 21:00 62 09/01/17 20:00 97.6 69 16 116/72 (87) 95 09/01/17 20:00 67 09/01/17 19:00 64 09/01/17 18:00 66 09/01/17 17:00 62 09/01/17 16:00 63 09/01/17 15:05 97.9 63 16 120/58 (78) 95 09/01/17 15:00 62 09/01/17 14:00 63 09/01/17 13:00 60 09/01/17 12:00 56 09/01/17 11:00 97.5 56 18 119/63 (81) 96 09/01/17 11:00 54 09/01/17 10:00 55 09/01/17 09:00 54 Result Diagram: 08/30/17 0230 08/31/17 0545 Imaging Last Impressions Chest X-Ray 08/30/17 0224 Signed Impressions: Service Date/Time: Wednesday, August 30, 2017 02:40 - CONCLUSION: Minimal bibasilar atelectasis. Neto Ware MD Myocardial Perfusion Scan Nuc Med 08/30/17 0000 Signed Impressions: Service Date/Time: Wednesday, August 30, 2017 14:23 - CONCLUSION: No appreciable ischemia. RISK CATEGORY: Low (<1%% Annual Mortality Rate) Kimberlee Her MD Objective Remarks General: NAD, AAOx3 Chest: CTA Cardiac: Regular Abd: +BS, soft ND/NT Ext: No edema Procedures 2D echo (08/31/17) - Estimated EF 55-60%. - The right ventricle is mildly dilated. - The right ventricular systolic function is moderately decreased. - Xvsdz-dl-atgy mitral valve regurgitation. - There is mild to moderate tricuspid valve regurgitation. - The pulmonary valve prosthesis is grossly normal. - Mild pulmonary valve regurgitation. A/P Problem List: (1) Wide-complex tachycardia ICD Codes: I47.2 - Ventricular tachycardia Status: Acute Plan: -Pt is 36 yo male with Tetralogy of Fallot. His initial surgery was at 5 yrs old. 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 He underwent pulmonary valve surgery at [facility] 4 yrs ago. - Pt has been doing very well up until the week prior to admission when he started to develop palpitations/diaphoresis/dizziness - He presented to the ED after awakening suddenly from sound sleep with palpitations, sensation that his heart was racing, with shortness of breath, and incontinence of stool. In the ED he was noted to have a heart rate in the 230s with a wide complex tachycardia, felt to be VT. - Pt was given amiodarone and adenosine which did not convert him. - Pt then received synchronized cardioversion in the ED and converted to NSR. - Cardiology is following. - Pt underwent evaluation with nuclear stress test on 08/30 which was negative. - Pt is on Metoprolol 50mg BID currently. Pt was reportedly only taking 25mg daily of metoprolol as an outpt. Dr Fu had lowered him from 100mg bid down to 50mg BID due to dizziness as an outpt - 2D echo (08/31/17) - Estimated EF 55-60%. - The right ventricle is mildly dilated. - The right ventricular systolic function is moderately decreased. - Arkxk-hu-tkrw mitral valve regurgitation. - There is mild to moderate tricuspid valve regurgitation. - The pulmonary valve prosthesis is grossly normal. - Mild pulmonary valve regurgitation. - Pt planned for EP consult today - Pt was made NPO today in case he was going to have EPS today, will touch base with Dr. Guido today - Cont. telemetry monitoring - Supportive care (2) Tetralogy of Fallot ICD Codes: Q21.3 - Tetralogy of Fallot Status: Chronic Assessment and Plan Patient examined. Assessment and plan formulated with Esme Guerrero PA-C. I agree with the above. Dr. Guido wishes to speak with pt's [facility] Mechanical Applications Engineer, Dr. Christine, . Dr. Guido called Dr. Christine's office but was unable to reach Dr. Christine. Dr. Guido left a message requesting a return call from Dr. Christine. Dr. Guido cancelled EPS study for today & pt is now scheduled for EPS study . I discussed this case with [facility] Case Management and asked that they assist in facilitating the conversation between Dr. Guido and Dr. Christine so that pt can have his EPS study. Esme Guerrero Sep 02, 2017 08:48 Pieter Bradley DO Sep 02, 2017 12:40
[2017-09-02] MEDS: METOPROLOL TARTRATE 50 MG TAB PO SCH ×2 (09:51→20:00)
[2017-09-02] MEDS: SODIUM CHLORIDE 0.9% FLUSH 10 ML FLUSH IVF PRN (20:00)
[2017-09-03] VITALS (22 sets, daily range): BP systolic 114–142; BP diastolic 58–68; PULSE 52–65; RESP 16–20; TEMP 97.6–98.7; O2SAT 94–96
[2017-09-03] MEDS: METOPROLOL TARTRATE 50 MG TAB PO SCH ×2 (09:06→21:27)
--- NOTE | 2017-09-03 09:51 | HHI.PR ---
Subjective Remarks Patient reports feeling well -> plan for EPS study and AICD placement today [address] Guiod Patient offers no complaints at this time Objective Vitals Vital Signs Date Time Temp Pulse Resp B/P (MAP) Pulse Ox O2 Delivery O2 Flow Rate FiO2 09/03/17 09:00 59 09/03/17 08:00 58 09/03/17 07:44 54 09/03/17 07:44 98.7 61 18 119/68 (85) 96 09/03/17 06:00 52 09/03/17 05:00 55 09/03/17 04:00 55 09/03/17 03:00 97.8 65 16 122/59 (80) 94 09/03/17 03:00 62 09/03/17 02:00 59 09/03/17 01:00 60 09/03/17 00:00 60 09/02/17 23:00 71 09/02/17 23:00 98.0 63 16 117/58 (77) 96 09/02/17 22:00 67 09/02/17 21:00 62 09/02/17 20:00 68 09/02/17 19:45 97.9 75 18 137/79 (98) 95 09/02/17 19:00 65 09/02/17 18:03 68 09/02/17 17:09 65 09/02/17 16:35 67 09/02/17 15:34 98.0 67 16 135/63 (87) 97 09/02/17 15:00 68 09/02/17 14:00 68 09/02/17 13:00 58 09/02/17 12:00 56 09/02/17 11:00 55 09/02/17 10:00 60 Result Diagram: 08/30/17 0230 08/31/17 0545 Imaging Last Impressions Chest X-Ray 08/30/17 0224 Signed Impressions: Service Date/Time: Wednesday, August 30, 2017 02:40 - CONCLUSION: Minimal bibasilar atelectasis. Neto Ware MD Myocardial Perfusion Scan Nuc Med 08/30/17 0000 Signed Impressions: Service Date/Time: Wednesday, August 30, 2017 14:23 - CONCLUSION: No appreciable ischemia. RISK CATEGORY: Low (<1%% Annual Mortality Rate) Kimberlee Her MD Objective Remarks General: NAD, AAOx3 Chest: CTA Cardiac: Regular Abd: +BS, soft ND/NT Ext: No edema Procedures 2D echo (08/31/17) - Estimated EF 55-60%. - The right ventricle is mildly dilated. - The right ventricular systolic function is moderately decreased. - Tydlh-pb-eneh mitral valve regurgitation. - There is mild to moderate tricuspid valve regurgitation. - The pulmonary valve prosthesis is grossly normal. - Mild pulmonary valve regurgitation. A/P Problem List: (1) Wide-complex tachycardia ICD Codes: I47.2 - Ventricular tachycardia Status: Acute Plan: -Pt is 36 yo male with Tetralogy of Fallot. His initial surgery was at 5 yrs old. 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 He underwent pulmonary valve surgery at [facility] 4 yrs ago. - Pt has been doing very well up until the week prior to admission when he started to develop palpitations/diaphoresis/dizziness - He presented to the ED after awakening suddenly from sound sleep with palpitations, sensation that his heart was racing, with shortness of breath, and incontinence of stool. In the ED he was noted to have a heart rate in the 230s with a wide complex tachycardia, felt to be VT. - Pt was given amiodarone and adenosine which did not convert him. - Pt then received synchronized cardioversion in the ED and converted to NSR. - Cardiology is following. - Pt underwent evaluation with nuclear stress test on 08/30 which was negative. - Pt is on Metoprolol 50mg BID currently. Pt was reportedly only taking 25mg daily of metoprolol as an outpt. Dr Fu had lowered him from 100mg bid down to 50mg BID due to dizziness as an outpt - 2D echo (08/31/17) - Estimated EF 55-60%. - The right ventricle is mildly dilated. - The right ventricular systolic function is moderately decreased. - Acisv-zv-sdkf mitral valve regurgitation. - There is mild to moderate tricuspid valve regurgitation. - The pulmonary valve prosthesis is grossly normal. - Mild pulmonary valve regurgitation. - Pt NPO planning to have EPS today with possible defibrillator placement, case discussed with Dr. Guido 09/03/17 - Cont. telemetry monitoring - Supportive care Discharge Planning Patient possible DC for tomorrow if cleared by cardiology (2) Tetralogy of Fallot ICD Codes: Q21.3 - Tetralogy of Fallot Status: Chronic Lilian Valdivia Sep 03, 2017 09:51
[2017-09-03] MEDS ORDERED: PROPOFOL 200 MG/20 ML AMP IV ONE (12:00)
[2017-09-03] MEDS ORDERED: LIDOCAINE HCL 1% PF 5 ML SYRINGE OTHER ONE (12:00)
--- NOTE | 2017-09-03 19:29 | CATHPROC ---
[employer] HIS Report Study Information Study Number Admission Scheduled Start Study Start [id number] Aug 30 2017 3:53AM 09/02/2017 Sep 03 2017 5:41PM [place] Service Cardiac Pacer/ICD Admit Source Facility Department Emergency department [facility] Research And Development Scientist Physician and Clinical Staff Initial Mely Stallworth Election Judge Gloria Quinn,RT(R) TECH2 Other Anesthesia, SLIP BRIDGE OPERATOR Other Kristy Vaughn BSN Recorder Virgie Webb RN Scrub America Menard,LOADERS TECH2 Procedures Performed Procedure Ablation Procedure Cardioversion Equipment Time Electronics Repair Technician Description Size Mfg Part Number Used/Scraped [id number] 18:38 MEDLINE INDUSTRIES PACK, CCL CUSTOM * Used *[id number] 18:38 MEDLINE PACER JIMENEZ, LIMB * 2530 *[id number] Used [id number] 18:38 [employer]RE MEDICAL BLANKET,WARM AIR CCL * Used *[id number] 18:38 [employer] MEDICAL CATHETER, JSN, QUAD FR 5 Used *[id number] 18:38 [employer]. [employer] MEDICAL CATHETER, JSN, QUAD FR 5 Used *[id number] 18:38 [employer]. [employer] MEDICAL CATHETER, JSN, QUAD FR 5 Used *[id number] 18:38 [employer]. [employer] MEDICAL CATHETER, JSN, QUAD FR 5 Used *[id number] 18:38 [employer]. [employer] MEDICAL SHEATH, EPS, FR5 FAST CATH FR 5 Used *[id number] 607892 18:38 [employer]. [employer] MEDICAL SHEATH, EPS, FR5 FAST CATH FR 5 Used *[id number] 499035 18:38 [employer]. [employer] MEDICAL SHEATH, EPS, FR5 FAST CATH FR 5 Used *[id number] 18:38 [employer]. [employer] MEDICAL SHEATH, EPS, FR6 FAST CATH FR 6 Used *[id number] Medication Medication Total Dose (Bolus/Oral) Medication Total Dosage/Unit 1% XYLOCAINE 20 mL Medications (Bolus/Oral) Medication Time Given Dosage/Unit Administered By Reason 1% XYLOCAINE 09/03/2017 6:58:33 PM 20 mL Mely Guido 20 mL 1% XYLOCAINE given in lab by Mely Guido in Right Groin via Subcutaneous. Medication (Drip) Medication Time Given Dosage/Unit Concentration/Unit Diluent (ml) Solution ANCEF 09/03/2017 6:35:39 PM 2 g 2 g ANCEF given in lab by Anesthesia, SLIP BRIDGE OPERATOR via Peripheral IV. VANCOMYCIN DRIP 09/03/2017 6:36:30 PM 1 g 1 g VANCOMYCIN DRIP given in lab by Anesthesia, SLIP BRIDGE OPERATOR in Left Antecubital via Peripheral IV. Initial Case Assessment Cardiovascular HR Rhythm NIBP Chest Pain 69 sr 126/59 0 Edema Present Skin color Skin None Normal Warm Circulatory - Right Pulses Dorsalis Pedis Femoral 2 2 Scale (0,1,2,3,4,d) Circulatory - Left Pulses Dorsalis Pedis Femoral 2 2 Scale (0,1,2,3,4,d) Neurological State Oriented to time-place- Alert Moves all extremities person Respiration - General Respiration Rate SpO2 (%) O2 (lpm) (B/min) 14 99 0 Chronological Log Time Study Chronological Log 18:05:57 Patient arrived via Bed. 18:05:58 Patient Name, D.O.B, / Armband Verified By R.N. 18:05:59 Consent signed by the physician and the patient and verified by the Research And Development Scientist staff. 18:05:59 Pre-op and post- op instructions given; patient acknowledges understanding of instructions. 18:06:00 Verbal Stimulation=2 Physical Stimulation=2 Airway=2 Respiration=2 TOTAL=8. (0=absent, 1=li mited, 2=present) 18:06:01 Patient has been NPO for More than 6Hrs. 18:06:03 Skin Breakdown-none per patient 18:06:04 Patient Warmer Placed on the Table. 18:10:23 Patient has been NPO for More than 6Hrs. 18:10:42 Anesthesia at bedside. Assumes care of patient. See anethesia flowsheet for Q5min vitals 18:11:38 Patient Warmer Placed on the Table. 18:12:43 Disposable Defibrillator Pads Placed On Patient. 18:12:49 Leana Prominences Protected 18:15:14 Presedation assessment performed by Research And Development Scientist RN. 18:21:38 A # 20 IV was noted in the Antecubital (left). 18:21:53 A # 20 IV was noted in the Hand (left). 18:24:00 History and physical on the chart or being dictated. Assessment: Initial Case, HR=69 BPM, Rhythm=sr, CSXY=159/59 mmhg, Chest Pain=0, Edema=None, Col or=Normal, Skin = Warm Right Pulses: Michael Ped=2, Femoral=2 18:34:05 Left Pulses: Michael Ped=2, Femoral=2 Neurological: State=Alert, Ox3, FOLEY Respiration: Resp=14 B/min, SpO2=99 %, O2=0 lpm 18:35:03 Table restraints applied according to hospital policy 18:35:11 Bilateral groins prepped with 2% chlorhexidine, and draped after a 3 minute waiting time. 18:35:39 2 g ANCEF given in lab by Anesthesia, SLIP BRIDGE OPERATOR via Peripheral IV. 18:36:30 1 g VANCOMYCIN DRIP given in lab by Anesthesia, SLIP BRIDGE OPERATOR in Left Antecubital via Peripheral IV. 18:37:11 MD paged 18:55:04 MD arrived. 18:56:20 Reference ECG taken Time Out. Correct patient, procedure, procedure equipment, site and side verified with physicia n present. Time 18:57:55 concurred by MD, individual staff and SLIP BRIDGE OPERATOR. Time Out #2 - Consents verified, patient in correct position, all results are labled and displa yed, safety precautions 18:57:56 taken, antibiotics administered. Time out concurred by MD, individual staff and SLIP BRIDGE OPERATOR in procedu re 18:57:59 Case Start 18:58:33 20 mL 1% XYLOCAINE given in lab by Mely Guido in Right Groin via Subcutaneous. 18:59:02 Vascular access was obtained in the Fem Vein (right). 18:59:06 Vascular access was obtained in the Fem Vein (right). 18:59:10 Vascular access was obtained in the Fem Vein (right). 18:59:18 Vascular access was obtained in the Fem Vein (right). 19:00:09 A SHEATH, EPS, FR5 FAST CATH FR 5 was advanced into the Fem Vein (right) using the Modified Seldinger technique. 19:00:28 A SHEATH, EPS, FR5 FAST CATH FR 5 was advanced into the Fem Vein (right) using the Modified Seldinger technique. 19:00:41 A SHEATH, EPS, FR5 FAST CATH FR 5 was advanced into the Fem Vein (right) using the Modified Seldinger technique. 19:00:53 A SHEATH, EPS, FR6 FAST CATH FR 6 was advanced into the Fem Vein (right) using the Modified Seldinger technique. A CATHETER, JSN, QUAD FR 5 was advanced vis Fem Vein (right) and placed in the CS. Placement wa s visually 19:02:20 confirmed under fluoroscopy. A CATHETER, JSN, QUAD FR 5 was advanced vis Fem Vein (right) and placed in the HIS. Placement was visually 19:03:30 confirmed under fluoroscopy. A CATHETER, JSN, QUAD FR 5 was advanced vis Fem Vein (right) and placed in the HRA. Placement was visually 19:03:47 confirmed under fluoroscopy. A CATHETER, JSN, QUAD FR 5 was advanced vis Fem Vein (right) and placed in the RVA. Placement was visually 19:04:18 confirmed under fluoroscopy. 19:06:37 EPS in progress. 19:12:48 ECG rhythm of VT noted. Patient cardioverted at 200 joules. Success 19:13:37 Sr noted on monitor 19:13:48 EPs complete. 19:14:00 Ablation procedure performed: ~ABLATION TYPE~. none. EPS 19:14:09 EP Procedure was performed. 19:15:24 No case complications noted. 19:15:25 Cine recording checked. 19:15:30 All Quad Catheter(s) removed without difficulty 19:15:31 Sheath(s) left in place, secured, 0.9ns kvo connected, will be removed in Holding Area 19:15:34 Case End 19:15:42 NOTE: This patient is undergoing an additional procedure while still in the Cardiac Cath L ab. End Study - Contrast Media Used In Study Contrast Total Opened (mL) Total Used (mL) Total Wasted (mL) Unspecified 0 0 0 End Study - Radiation Exposure Fluoro Time (minutes) 1.0 End Study - Patient Disposition Complications Transferred To Interventional Outcome No Research And Development Scientist Holding successful
--- NOTE | 2017-09-03 20:09 | CATHPROC ---
[employer] HIS Report Study Information Study Number Admission Scheduled Start Study Start [id number] Aug 30 2017 3:53AM 09/02/2017 Sep 03 2017 7:31PM [place] Service Electrophysiology Study Admit Source Facility Department Other [facility] - Senior Coldfusion Developer Physician and Clinical Staff Initial Mely Stallworth Library Media Technician Gloria Quinn,RT(R) TECH2 Other Anesthesia, MILK DRIVER Recorder Virgie Webb,RN Scrub America Menard,HYDROMETALLURGICAL ENGINEER TECH2 Procedures Performed Procedure Lead Insertion Equipment Time Esthetician And Manager Medical Spa Description Size Mfg Part Number Used/Scraped [employer]/ EP 19:39 LEAD, ENDOTAK RELIANCE SG 0293 Used PACER DERMABOND, ADHESIVE SKIN [id number] 19:38 CORDIS/PACER * Used GLUE MINI *[id number] 19:38 MEDLINE INDUSTRIES SUTURE, STRIP PLUS 1/2" * Used *[id number] 19:38 MEDLINE PACER JIMENEZ, LIMB * 2530 *[id number] Used [id number] 19:38 MEDLINE PACER PACK, PACER CUSTOM * Used *[id number] 19:36 [facility] Rebtel PACER SAFE SHEATH, FR9, 13CM FR 9 [id number] Used 19:37 Needle Sponge Count 2 2 Used 19:37 Needle Sponge Count 2 22 Used 19:37 Needle Sponge Count 20 200 Used SUTURE, 0 ETHIBOND [CT1] (CX21D), 8pk SUTURE, 2-0 VICRYL [CT1] (UCZ091Y) SUTURE, 2-0 VICRYL [CT1] (NIF838F) [id number] 19:38 [place] MED[employer] BLANKET,WARM AIR CCL * Used *[id number] [facility] PAD, ELECTROSURGICAL 19:38 * [id number] *[id number] Used SURGICAL GROUNDING ORANGE [id number] 19:38 [employer] AKANKSHA. / * Used *[id number] Equipment Model, Serial, Lot Number and Expiration Data Description Model Number Serial Number Lot Number Expiration Date LEAD, ENDOTAK RELIANCE SG 0293 64 [id number] 07-25-2019 Medication Medication Total Dose (Bolus/Oral) Medication Total Dosage/Unit 2% XYLOCAINE 50 mL Medications (Bolus/Oral) Medication Time Given Dosage/Unit Administered By Reason 2% XYLOCAINE 09/03/2017 7:34:42 PM 50 mL Mely Guido 50 mL 2% XYLOCAINE given in lab by Mely Guido in Left upper chest via Subcutaneous. Final Case Assessment Cardiovascular HR Rhythm NIBP Chest Pain 68 sr 115/57 0 Edema Present Skin color Skin None Normal Warm Dry Circulatory - Right Pulses Dorsalis Pedis Radial 2 2 Scale (0,1,2,3,4,d) Circulatory - Left Pulses Dorsalis Pedis Radial 2 2 Scale (0,1,2,3,4,d) Circulatory - Lower Extremities Color Lower Right Color Lower Left Normal Normal Neurological State Oriented to time-place- Alert Moves all extremities person Respiration - General Respiration Rate SpO2 (%) O2 (lpm) (B/min) 18 99 4 Chronological Log Time Study Chronological Log 19:15:42 NOTE: This patient is undergoing an additional procedure while still in the Cardiac Cath La b. 19:16:47 2% CHLORHEXIDINE GLUCONATE WASH AND NASAL SWIPE DONE PRIOR TO PROCEDURE. 19:16:51 [place] Sci reps present 19:17:53 Bovie ground pad applied to: 19:19:53 Upper Chest Prepped Times Two. First Sponge And Instrument Count Done by America Menard, HYDROMETALLURGICAL ENGINEER TECH2. 19:23:27 Hypo's: 2, Sponges: 20, Bovie/scratch: 2 Sutures: 10, Blades: 1, Instruments: 26, Syveck Patches: 0 verified w HH 19:32:09 Anesthesia remains at bedside. Assuming care of patient. Time Out. Correct patient, procedure, procedure equipment, site and side verified with physicia n present. Time 19:34:00 concurred by MD, individual staff and MILK DRIVER. Time Out #2 - Consents verified, patient in correct position, all results are labled and displa yed, safety precautions 19:34:13 taken, antibiotics administered. Time out concurred by MD, individual staff and MILK DRIVER in procedu re 19:34:37 Case Start 19:34:42 50 mL 2% XYLOCAINE given in lab by Mely Guido in Left upper chest via Subcutaneous. 19:35:00 A pocket was created at the L Upper Chest. 19:35:11 Vascular access was obtained in the Subclav. Vein (Lft. 19:35:15 Wire inserted 19:35:21 A SAFE SHEATH, FR9, 13CM FR 9 was advanced into the Subclav. Vein (Lft using the Modified S biancadinger technique. 19:38:04 A LEAD, ENDOTAK RELIANCE SG was inserted and positioned in the RV. 19:39:26 Lead placement verified under fluoroscopy 19:40:34 Patient defibrillated at 300 joules. The ECG rhythm was noted as VT. 19:40:42 Patient defibrillated at 360 joules. The ECG rhythm was noted as VT. 19:40:56 Md positioning RV lead 19:42:20 Patient defibrillated at 360 joules. The ECG rhythm was noted as VT. 19:42:31 Reference ECG taken 19:43:56 The RV lead impedance and threshold being tested. 19:44:48 A pocket was created at the L Upper Chest. 19:48:53 Pocket flushed with antibiotic solution A implantable was connected and placed in the pocket. Zaarly DYNAGEN EL ICD VR, Mod D150, S N [id number], Lot 19:49:01 [id number] 19:51:17 Vt noted pt paced out by [employer] rep using device. Second Sponge And Instrument Count Done by America Menard, HYDROMETALLURGICAL ENGINEER TECH2. 19:54:27 Hypo's: 2, Sponges: 20, Bovie/scratch: 2 Sutures: 10, Blades: 1, Instruments: 26, Syveck Patches: 0 verified w 19:57:03 The pocket was closed. Final Sponge And Instrument Count Done by America Menard, HYDROMETALLURGICAL ENGINEER TECH2. 19:58:11 Hypo's: 2, Sponges: 20, Bovie/scratch: 2 Sutures: 10, Blades: 1, Instruments: 26, Syveck Patches: 0 verified w 20:01:08 Sterile dressing applied to L upper chest site 20:01:23 Defibrillator and ground pads removed. Skin intact. 20:01:32 Sheaths removed from right groin by ; pressure applied to access site for 10 min. 20:04:46 [facility]PCU called. Spoke to You. 20:05:11 Bedside Report will be given. Assessment: Final Case, HR=68 BPM, Rhythm=sr, CJFG=914/57 mmhg, Chest Pain=0, Edema=None, [place] r=Normal, Skin = Warm, Dry Right Pulses: Michael Ped=2, Radial=2 Left Pulses: Michael Ped=2, Radial=2 20:05:40 Lower Right Extremities: Color=Normal Lower Left Extremities: Color=Normal Neurological: State=Alert, Ox3, FOLEY Respiration: Resp=18 B/min, SpO2=99 %, O2=4 lpm 20:07:57 Implantable Device card placed in patient's chart. 20:08:10 A sling was placed on the affected arm. 20:11:43 Sterile dressing applied to R groin site. Site wnl 20:12:33 Case End 20:12:39 No case complications noted. 20:12:42 Cine recording checked. 20:16:20 Patient moved to stretcher End Study - Contrast Media Used In Study Contrast Total Opened (mL) Total Used (mL) Total Wasted (mL) Unspecified 0 0 0 End Study - Radiation Exposure Fluoro Time (minutes) 3.0 End Study - Patient Disposition Complications Transferred To Interventional Outcome No Telemetry Bed successful
--- NOTE | 2017-09-03 20:19 | PD.CARD ---
SINGLE CHAMBER DEFIB IMPLANT PROCEDURE DATE: Sep 03, 2017 Prevention: Secondary Single Chamber Defib Implant PROCEDURE: Single chamber defibrillator implantation and device testing. INDICATIONS: Mr. Pat is a 36 -year-old male with congenital heart disease, tetralogy of Fallot, ventricular tachycardia heart failure, ejection fraction 55 %, who undergo defibrillator implantation for sudden secondary prevention. The risks, the nature and the benefit of the procedure are clearly stated to him . Risks include pneumothorax, cardiac perforation, stroke and even . He understood and agreed to proceed. PROCEDURE: As written, informed consent was obtained prior to the electrophysiology study, the patient was kept on the table where he was prepped and draped in the sterile fashion. Conscious sedation was initiated and maintained throughout the procedure by anesthesiologist. Once sedation was verified, the left infraclavicular area was anesthetized with 2% Xylocaine. Using modified Seldinger technique, the left subclavian vein was cannulated on one occasion and one guide wire was advanced. Then, using #11 blade scalpel, a 3-cm incision was made two fingerbreadths below left clavicle. This incision was then taken down to the deep fascial layer using Bovie cautery and blunt dissection. Into the inferomedial direction, a device pocket was dissected, then the wire was dissected into the pocket. A 2-0 Vicryl suture was placed around the wires to prevent bleeding. At this point, over the wire, the 9- Amharic dilator and introducer was advanced. As dilator and wire were removed, an active fixation right ventricular pacing, sensing and defibrillatory lead was advanced. After adequate pacing and sensing thresholds were obtained, the lead was secured in the pocket with #2 Ethibond suture. During lead manipulation, three episodes of ventricular tachycardia requiring external cardioversion were induced. At that point, the pocket was copiously irrigated with antibiotic solution. The leads were connected to the generator and placed into the pocket. I did proceed with NIPS. Initial induction consisted of T-wave shock which induced ventricular fibrillation which was adequately detected and treated by the ICD generator, delivering an run of ATP converting the patient back into sinus rhythm. Shocking impedance was 65 ohms. At that point NIPS was complete. I did proceed with wound closure. The deep fascial layer was approximated with 2-0 Vicryl suture in a continuous fashion. The subcutaneous layer was approximated with 2-0 Vicryl suture in a continuous fashion. The subcuticular layer was approximated with 2-0 Vicryl suture in a continuous fashion. Dermabond adhesive was applied to the wound, followed by a sterile pressure dressing. There was no complication. The patient tolerated procedure. Blood loss minimal. 1. Implanted Hardware: The implanted defibrillator generator is a [employer], model number D150, serial number [id number]. The right ventricular pacing, sensing and defibrillatory lead is a [employer] model number 0293 , serial number [id number]. 2. Thresholds: The right ventricular pacing threshold in the bipolar mode was 0.8volts at 0.5 milliseconds, lead impedance 700 ohms and R-wave at 4.3 mV. Shocking, impedance 65 ohms. 3. Settings: The device set in VVI40 defibrillatory portion for two zones, one zone for ventricular tachycardia between 190 and 250 beats per minute. Initial therapy consists of one burst of ATP, one ramp, 81%, 10 pulse, 10 millisecond decremental, followed by 21, then 31 and all subsequent shocks at 41 joules defibrillatory shock, the second zone for ventricular fibrillation above 250 beats per minute, first therapy at 31 and all subsequent shocks at 41 joules defibrillatory shock. CONCLUSIONS: Successful defibrillator implantation and device testing. COMMENT AND RECOMMENDATIONS: The patient will be transferred to the telemetry unit, will be observed and when stable can be discharged home. Mely Guido MD Sep 03, 2017 20:18
--- NOTE | 2017-09-03 22:43 | MB ---
cc: ROSALIND DELGADO M.D. DATE OF CONSULTATION 09/03/2017 Electrophysiology consultation REASON FOR CONSULTATION Ventricular tachycardia. HISTORY OF THE PRESENT ILLNESS Mr. Pat is a 36-year-old gentleman with history of tetralogy of Fallot repaired at 5 years old, pulmonary insufficiency, pulmonary valve replacement, previous aortic stent, playing golf very active was admitted to the emergency room due to dizziness and shortness of breath as well as palpitations. He was found on wide complex tachyarrhythmia. The patient was cardioverted into sinus rhythm after failed adenosine administration. He did receive amiodarone. That failed to convert him into sinus rhythm. He was admitted. Echocardiogram showed normal ejection fraction. I was consulted for evaluation and management. The chart was reviewed. The patient was evaluated. ALLERGIES None. SOCIAL HISTORY The gentleman negative for smoking and drinking. FAMILY HISTORY Noncontributory to his current medical condition. MEDICATIONS Gentleman is on Metoprolol. PHYSICAL EXAMINATION GENERAL: Alert, fully oriented. VITAL SIGNS: Blood pressure on evaluation this morning 190/68, pulse 64 and respiratory rate 18. LUNGS: Ventilated. CARDIOVASCULAR: S1-S2. There is a discrete systolic ejection murmur. ABDOMEN: Soft. No mass. No bruits. EXTREMITIES: No edema. Electrocardiogram on hospitalization is wide complex tachyarrhythmia with a different ____ on the sinus rhythm. That looked like ventricular tachycardia. Subsequent electrocardiogram shows sinus rhythm, first-degree AV block, right bundle-branch block, diffuse ST changes. LABORATORY DATA Hemoglobin is 15.4, white blood cell 13.2. Potassium 4.1, creatinine 1.06. Troponin less than 0.02. INR 1.1. ASSESSMENT AND RECOMMENDATIONS Mr. Pat has wide complex tachyarrhythmia. This is most likely ventricular tachycardia. He has a tetralogy of Fallot and VSD repair. There is a high incidence of sudden due to ventricular tachycardia. The patient will be . I had a long conversation with him, with Dr. Perry Fu and Dr. Bradley. The patient did ask me to call his doctor at [facility] in [place]. The doctor is on vacation. I did talk to the nurse Mr. Ma that indicated the doctor is not available and we can take further decision about the patient's management. After a long conversation with the patient and with Dr. Fu, we discussed electrophysiology study and most likely the need for defibrillator insertion for sudden secondary prevention. The risks, the nature and the benefit of the procedure are clearly stated to him. The risks include pneumothorax, cardiac perforation, stroke and even . He understood and agreed to proceed. Procedure will be performed today. MD TODD Pham/KK /7:51 PM /10:15 PM
[2017-09-04] VITALS (14 sets, daily range): BP systolic 129–142; BP diastolic 62–76; PULSE 58–69; RESP 17; TEMP 97.4–98.4; O2SAT 96
--- NOTE | 2017-09-04 05:25 | MA ---
cc: YAZMIN GREEN MD, HANSCY M.D. BRAITHWAITE, RICHARD L. M.D. DATE 09/03/2017 PROCEDURE Electrophysiology study. INDICATIONS FOR PROCEDURE Mr. Pat is a 36-year-old gentleman with history of tetralogy of Fallot referred for a pulmonary valve replacement, aortic stent who developed a wide complex tachyarrhythmia and dizziness. The patient was cardioverted into sinus rhythm. Electrophysiology study and device insertion decision was taken. The risks, the nature and the benefit of the procedure are clearly stated to him. The risks include pneumothorax, cardiac perforation, stroke and even . He understood and agreed to proceed. PROCEDURE After written informed consent was obtained, the patient was brought to the EP Lab where he was prepped and draped in the usual sterile fashion. Conscious sedation was initiated throughout the procedure by the anesthesiologist. Once sedation was verified, the right inguinal area was anesthetized with 2% Xylocaine. Using modified Seldinger technique, the right femoral vein was cannulated on four occasions, four guidewires were advanced over the wire. Three 5 and a 6-Faroese Hemaquet were advanced. Then under fluoroscopic guidance through the 5-Faroese and 6-Faroese Hemaquet, four 5-Faroese Vickie curved quadripolar electrophysiology catheters were advanced and placed on the His, upper right atrium, coronary sinus and right ventricular apex. I did attempt to cannulate the His on multiple occasions. That fail. The His catheter was removed. Basic intervals were measured and were within normal limits. At this point atrial pacing protocol was performed. Atrial pacing protocol consisted of incremental atrial pacing as well as program stimulation with 110th cycle length and up to one extra stimuli delivered. No tachyarrhythmia was induced. Then ventricular pacing protocol was performed. There was no VA conduction. During program stimulation ventricular tachycardia was induced. The patient failed cardiac pacing at that point and was rescued by 200 sync biphasic joule that converted the patient into sinus rhythm. Cycle length of the arrhythmia is around 246 milliseconds. At that point the procedure was complete. All catheters were removed. The patient is going to be kept on the table. A single chamber defibrillator will be implanted for sudden secondary prevention. No incident reported. The patient tolerated the procedure. Blood loss minimal number 1. ELECTROCARDIOGRAM: At baseline the patient was in sinus, postprocedure electrocardiogram was unchanged. 2. BASIC INTERVAL: Base cycle length was around 780 milliseconds. AH was around 90 and HV was around 58 milliseconds. 3. ATRIAL PACING PROTOCOL: Wenckebach of the node was around 430 milliseconds. ERP of the node was 600, 260 milliseconds. No tachyarrhythmia was induced. 4. VENTRICULAR PACING PROTOCOL: There was no VA conduction. Ventricular tachycardia was induced. Tachycardia cycle length was around 246 milliseconds. The patient was rescued by 200 biphasic joule. CONCLUSION Ventricular tachyarrhythmia. COMMENT AND RECOMMENDATIONS The patient is going to be kept on the table and a single chamber defibrillator will be implanted for sudden secondary prevention. MD TODD Pham/SSB /7:56 PM /4:52 AM
[2017-09-04 06:33] LABS: BICARBONATE 27.3 MEQ/L (21.0-32.0); CALCIUM 8.7 MG/DL (8.5-10.1); CREATININE 0.99 MG/DL (0.60-1.30)
[2017-09-04 06:49] LABS: AUTOMATED NEUTROPHIL # 7.3 TH/MM3 (1.8-7.7); BASOPHIL % 0.1 % (0.0-2.0); EOSINOPHIL # 0.1 TH/MM3 (0-0.4); EOSINOPHIL % 0.6 % (0.0-4.0); HEMATOCRIT 44.5 % (39.0-51.0); HEMOGLOBIN 15.2 GM/DL (13.0-17.0); LYMPH % 16.2 % (9.0-44.0); LYMPHOCYTE # 1.6 TH/MM3 (1.0-4.8); MEAN CELL VOLUME 83.5 FL (80.0-100.0); MEAN CORPUSCULAR HEMOGLOBIN 28.5 PG (27.0-34.0); MEAN CORPUSCULAR HGB CONC 34.1 % (32.0-36.0); MEAN PLATELET VOLUME 9.7 FL (7.0-11.0); MONO % 9.4 % (0.0-8.0); MONOCYTE # 0.9 TH/MM3 (0-0.9); NEUT % 73.7 % (16.0-70.0); PLATELET COUNT 184 TH/MM3 (150-450); RED BLOOD COUNT 5.33 MIL/MM3 (4.50-5.90); RED CELL DISTRIBUTION WIDTH 12.7 % (11.6-17.2); WHITE BLOOD COUNT 9.9 TH/MM3 (4.0-11.0)
--- NOTE | 2017-09-04 08:01 | PD.CARD.PN ---
Subjective Subjective Remarks Feeling better. Objective Medications Current Medications Medications (Trade) Dose Ordered Sig/Souleymane Route Start Time Stop Time Status Last Admin (NS Flush) 2 ml UNSCH PRN IVF 08/30/17 02:30 09/02/17 20:00 (NS Flush) 2 ml UNSCH PRN IVF 08/30/17 02:45 (Lopressor) 50 mg Q12HR PO 09/01/17 09:30 09/03/17 21:27 Vital Signs / I&O Vital Signs Date Time Temp Pulse Resp B/P (MAP) Pulse Ox O2 Delivery O2 Flow Rate FiO2 09/04/17 07:35 98.4 66 17 142/65 (90) 96 09/04/17 07:00 64 09/04/17 06:00 62 09/04/17 05:01 63 09/04/17 04:09 60 09/04/17 03:00 98.2 62 17 129/62 (84) 96 09/04/17 03:00 60 09/04/17 02:00 63 09/04/17 01:01 65 09/04/17 00:00 64 09/03/17 23:00 60 09/03/17 23:00 97.8 60 17 142/64 (90) 95 09/03/17 22:00 60 09/03/17 21:00 65 09/03/17 20:30 64 09/03/17 20:30 97.6 64 17 134/61 (85) 95 09/03/17 17:00 62 09/03/17 16:00 60 09/03/17 15:00 61 09/03/17 15:00 98.6 59 20 114/58 (76) 96 09/03/17 14:00 60 09/03/17 13:00 60 09/03/17 12:00 54 09/03/17 11:00 98.1 56 20 115/60 (78) 95 09/03/17 11:00 59 09/03/17 10:00 56 09/03/17 09:00 59 09/03/17 08:00 58 I/O 09/03/17 09/03/17 09/03/17 09/04/17 09/04/17 09/04/17 07:00 15:00 23:00 07:00 15:00 23:00 Intake Total 480 ml 0 ml 480 ml Output Total 500 ml 500 ml 950 ml Balance -20 ml -500 ml -470 ml Intake Oral 480 ml 0 ml 480 ml Output Urine Total 500 ml 500 ml 950 ml # Bowel Movements 0 0 Physical Exam GENERAL: Well-nourished, well-developed patient. SKIN: Warm and dry. Left chest wall incision well approximated without erythema or drainage. HEAD: Normocephalic. EYES: No scleral icterus. No injection or drainage. NECK: Supple, trachea midline. No JVD or lymphadenopathy. CARDIOVASCULAR: Regular rate and rhythm without murmurs, gallops, or rubs. RESPIRATORY: Breath sounds equal bilaterally. No accessory muscle use. GASTROINTESTINAL: Abdomen soft, non-tender, nondistended. EXTREMITIES: No cyanosis, or edema. NEUROLOGICAL: Awake, alert, and oriented x 3. Non-focal. Laboratory Laboratory Tests Test 09/04/17 05:47 White Blood Count 9.9 TH/MM3 Red Blood Count 5.33 MIL/MM3 Hemoglobin 15.2 GM/DL Hematocrit 44.5 % Mean Corpuscular Volume 83.5 FL Mean Corpuscular Hemoglobin 28.5 PG Mean Corpuscular Hemoglobin Concent 34.1 % Red Cell Distribution Width 12.7 % Platelet Count 184 TH/MM3 Mean Platelet Volume 9.7 FL Neutrophils (%) (Auto) 73.7 % Lymphocytes (%) (Auto) 16.2 % Monocytes (%) (Auto) 9.4 % Eosinophils (%) (Auto) 0.6 % Basophils (%) (Auto) 0.1 % Neutrophils # (Auto) 7.3 TH/MM3 Lymphocytes # (Auto) 1.6 TH/MM3 Monocytes # (Auto) 0.9 TH/MM3 Eosinophils # (Auto) 0.1 TH/MM3 Basophils # (Auto) 0.0 TH/MM3 CBC Comment DIFF FINAL Differential Comment Blood Urea Nitrogen 15 MG/DL Creatinine 0.99 MG/DL Random Glucose 90 MG/DL Calcium Level 8.7 MG/DL Sodium Level 139 MEQ/L Potassium Level 4.1 MEQ/L Chloride Level 103 MEQ/L Carbon Dioxide Level 27.3 MEQ/L Anion Gap 9 MEQ/L Estimat Glomerular Filtration Rate 87 ML/MIN Assessment and Plan Problem List: (1) S/P ICD (internal cardiac defibrillator) procedure ICD Codes: Z95.810 - Presence of automatic (implantable) cardiac defibrillator Plan: Incision benign, device function appropriate. PA and lateral chest x- ray pending. If chest x-ray is negative can be discharged home from EP standpoint and follow-up with Dr. cash in 2 weeks. Assessment and plan discussed with patient, RN and Dr. cash. (2) Wide-complex tachycardia ICD Codes: I47.2 - Ventricular tachycardia Status: Acute Plan: Likely felt to be VT given patient's prior history. No recurrence overnight. Mercedes Dawkins Sep 04, 2017 08:01
--- NOTE | 2017-09-04 08:02 | PD.CARD.PN ---
Subjective Subjective Remarks Doing well status post AICD insertion. Objective Medications Current Medications Medications (Trade) Dose Ordered Sig/Souleymane Route Start Time Stop Time Status Last Admin (NS Flush) 2 ml UNSCH PRN IVF 08/30/17 02:30 09/02/17 20:00 (NS Flush) 2 ml UNSCH PRN IVF 08/30/17 02:45 (Lopressor) 50 mg Q12HR PO 09/01/17 09:30 09/03/17 21:27 Vital Signs / I&O Vital Signs Date Time Temp Pulse Resp B/P (MAP) Pulse Ox O2 Delivery O2 Flow Rate FiO2 09/04/17 07:35 98.4 66 17 142/65 (90) 96 09/04/17 07:00 64 09/04/17 06:00 62 09/04/17 05:01 63 09/04/17 04:09 60 09/04/17 03:00 98.2 62 17 129/62 (84) 96 09/04/17 03:00 60 09/04/17 02:00 63 09/04/17 01:01 65 09/04/17 00:00 64 09/03/17 23:00 60 09/03/17 23:00 97.8 60 17 142/64 (90) 95 09/03/17 22:00 60 09/03/17 21:00 65 09/03/17 20:30 64 09/03/17 20:30 97.6 64 17 134/61 (85) 95 09/03/17 17:00 62 09/03/17 16:00 60 09/03/17 15:00 61 09/03/17 15:00 98.6 59 20 114/58 (76) 96 09/03/17 14:00 60 09/03/17 13:00 60 09/03/17 12:00 54 09/03/17 11:00 98.1 56 20 115/60 (78) 95 09/03/17 11:00 59 09/03/17 10:00 56 09/03/17 09:00 59 I/O 09/03/17 09/03/17 09/03/17 09/04/17 09/04/17 09/04/17 07:00 15:00 23:00 07:00 15:00 23:00 Intake Total 480 ml 0 ml 480 ml Output Total 500 ml 500 ml 950 ml Balance -20 ml -500 ml -470 ml Intake Oral 480 ml 0 ml 480 ml Output Urine Total 500 ml 500 ml 950 ml # Bowel Movements 0 0 Physical Exam Lungs clear RRR murmur same Laboratory Laboratory Tests Test 09/04/17 05:47 White Blood Count 9.9 TH/MM3 Red Blood Count 5.33 MIL/MM3 Hemoglobin 15.2 GM/DL Hematocrit 44.5 % Mean Corpuscular Volume 83.5 FL Mean Corpuscular Hemoglobin 28.5 PG Mean Corpuscular Hemoglobin Concent 34.1 % Red Cell Distribution Width 12.7 % Platelet Count 184 TH/MM3 Mean Platelet Volume 9.7 FL Neutrophils (%) (Auto) 73.7 % Lymphocytes (%) (Auto) 16.2 % Monocytes (%) (Auto) 9.4 % Eosinophils (%) (Auto) 0.6 % Basophils (%) (Auto) 0.1 % Neutrophils # (Auto) 7.3 TH/MM3 Lymphocytes # (Auto) 1.6 TH/MM3 Monocytes # (Auto) 0.9 TH/MM3 Eosinophils # (Auto) 0.1 TH/MM3 Basophils # (Auto) 0.0 TH/MM3 CBC Comment DIFF FINAL Differential Comment Blood Urea Nitrogen 15 MG/DL Creatinine 0.99 MG/DL Random Glucose 90 MG/DL Calcium Level 8.7 MG/DL Sodium Level 139 MEQ/L Potassium Level 4.1 MEQ/L Chloride Level 103 MEQ/L Carbon Dioxide Level 27.3 MEQ/L Anion Gap 9 MEQ/L Estimat Glomerular Filtration Rate 87 ML/MIN Assessment and Plan Assessment and Plan Status post AICD. Okay to go home today. Will increase metoprolol to 50mg twice daily and call it in electronically to the [facility] pharmacy. Follow up in my office in 1 week. Activity discussed. Perry Fu MD Sep 04, 2017 08:02
[2017-09-04] MEDS: METOPROLOL TARTRATE 50 MG TAB PO SCH (08:48)
[2017-09-04] MEDS ORDERED: METO-309 PO (10:49)
--- NOTE | 2017-09-04 10:51 | HHI.DS ---
Discharge Summary Admission Date Aug 30, 2017 at 03:53 Discharge Date: Sep 04, 2017 Admitting Diagnosis Wide complex tachycardia, h/o Tetrology of Fallot (1) Wide-complex tachycardia ICD Codes: I47.2 - Ventricular tachycardia Status: Acute (2) Tetralogy of Fallot ICD Codes: Q21.3 - Tetralogy of Fallot Status: Chronic Consultants Dr. Lata Fu Procedures AICD placement 09/03/[address] Guido Brief History Pt is 36 yo with hx tetralogy of fallot, surgery at age 5, then 4 yrs ago had pulmonary valve replaced at [facility]. Was doing very well and work out in weightroom regularly. [place] a little dizzy over past week. Has been taking his prescribes meds. Missed a week of meds but that was several months ago. No cp or sob. Awoke in middle of night with palpitations/dizziness/ diaphoresis. On arrival here was found to have WCT. Unresponsive to amiodarone and adenosine. ED physician and cardiology decided on cardioversion. It was successful and pt went back into sinus. He is doing ok this morning. CBC/BMP: 09/04/17 0547 09/04/17 0547 Significant Findings Laboratory Tests Test 09/04/17 05:47 Neutrophils (%) (Auto) 73.7 % (16.0-70.0) Monocytes (%) (Auto) 9.4 % (0.0-8.0) Estimat Glomerular Filtration Rate 87 ML/MIN (>89) Imaging Last Impressions Chest X-Ray 09/04/17 0000 Signed Impressions: Service Date/Time: September 09:55 - CONCLUSION: 1. No pneumothorax status post placement of left subclavian AICD. 2. Cardiomegaly. Natanael Turcios MD Myocardial Perfusion Scan Nuc Med 08/30/17 0000 Signed Impressions: Service Date/Time: Wednesday, August 30, 2017 14:23 - CONCLUSION: No appreciable ischemia. RISK CATEGORY: Low (<1%% Annual Mortality Rate) Kimberlee Her MD PE at Discharge General: NAD, AAOx3 Chest: CTA Cardiac: Regular Abd: +BS, soft ND/NT Ext: No edema Hospital Course Wide-complex tachycardia -Pt is 36 yo male with Tetralogy of Fallot. His initial surgery was at 5 yrs old. 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 He underwent pulmonary valve surgery at [facility] 4 yrs ago. - Pt has been doing very well up until the week prior to admission when he started to develop palpitations/diaphoresis/dizziness - He presented to the ED after awakening suddenly from sound sleep with palpitations, sensation that his heart was racing, with shortness of breath, and incontinence of stool. In the ED he was noted to have a heart rate in the 230s with a wide complex tachycardia, felt to be VT. - Pt was given amiodarone and adenosine which did not convert him. - Pt then received synchronized cardioversion in the ED and converted to NSR. - Cardiology is following. - Pt underwent evaluation with nuclear stress test on 08/30 which was negative. - Pt is on Metoprolol 50mg BID currently. Pt was reportedly only taking 25mg daily of metoprolol as an outpt. Dr Fu had lowered him from 100mg bid down to 50mg BID due to dizziness as an outpt - 2D echo (08/31/17) - Estimated EF 55-60%. - The right ventricle is mildly dilated. - The right ventricular systolic function is moderately decreased. - [id number] mitral valve regurgitation. - There is mild to moderate tricuspid valve regurgitation. - The pulmonary valve prosthesis is grossly normal. - Mild pulmonary valve regurgitation. - Pt NPO planning to have EPS today with possible defibrillator placement, case discussed with Dr. Guido 09/03/17 - s/p AICD placement 09/03/[address] Guido - cardiology increase metoprolol to 50 mg PO BID - Cont. telemetry monitoring - Supportive care Tetralogy of Fallot Chronic Pt Condition on Discharge: Stable Discharge Disposition: Discharge Home Discharge Instructions DIET: Follow Instructions for: Heart Healthy Diet Activities you can perform: See Additionl Instruction Other Activity Instructions: activity and wound care per cardiology Follow up Referrals: Cardiology - 2 Weeks with Mely Guido MD Cardiology - [address] Fu New Medications: Cephalexin (Keflex) 500 Mg Cap 500 MG PO Q8H for Infection for 3 Days, #9 CAP 0 Refills Metoprolol Tartrate (Lopressor) 50 Mg Tab 50 MG PO Q12HR for heart rate, #60 TAB 0 Refills Continued Medications: Multiple Vitamin (Multi Vitamin Mens) Mens Tab DAILY Discontinued Medications: Lisinopril (Lisinopril) 2.5 Mg Tab Unknown Dose PO DAILY, #30 TAB 0 Refills Metoprolol Tartrate (Lopressor) 50 Mg Tab 25 PO DAILY for heart disease, #30 TAB 0 Refills Lilian Valdivia Sep 04, 2017 10:51
--- NOTE | 2017-09-04 11:14 | RADRPT ---
EXAM DATE/TIME: 09/04/2017 09:55 [facility] COMPARISON: No previous studies available for comparison. INDICATIONS : Post ICD insertion. MEDICAL HISTORY : Hypertension. SURGICAL HISTORY : Pacemaker. Open heart. Heart valve. ENCOUNTER: Subsequent ACUITY: 2 days PAIN SCORE: 0/10 LOCATION: Bilateral chest FINDINGS: Left subclavian AICD has its tip in the right ventricle. No pneumothorax is noted. Median sternotomy wires are noted status post cardiac surgery. The heart is enlarged. The lungs are clear. Surgical cli ps are noted within the right paratracheal region. CONCLUSION: 1. No pneumothorax status post placement of left subclavian AICD. 2. Cardiomegaly. Natanael Turcios MD on September 04, 2017 at 11:11 Board Certified Radiologist. This report was verified electronically.
[2017-09-04] MEDS ORDERED: CEPH-460 PO (12:53)
[2017-09-04] MEDS ORDERED: CEPHALEXIN MONOHYDRATE 500 MG CAP PO SCH (14:00)
== END 2017-09-04 12:51 | disposition home or self-care (01) | DRG 227 ==
LOC: NEPC 02:06 → NEDA 03:53 → HCPC 05:04
PROVIDERS: ADMIT Hospitalist; ATTEND Hospitalist
PROC: 5A2204Z Restoration of Cardiac Rhythm, Single (ICD-10-PCS; 2017-08-30)
PROC: 02HK3KZ Insertion of Defibrillator Lead into Right Ventricle, Percutaneous Approach (ICD-10-PCS; 2017-09-03)
PROC: 4A0234Z Measurement of Cardiac Electrical Activity, Percutaneous Approach (ICD-10-PCS; 2017-09-03)
PROC: 5A2204Z Restoration of Cardiac Rhythm, Single (ICD-10-PCS; 2017-09-03)
PROC: 0JH608Z Insertion of Defibrillator Generator into Chest Subcutaneous Tissue and Fascia, Open Approach (ICD-10-PCS; principal; 2017-09-03 19:00)
DX: I47.2 Ventricular tachycardia (principal); I08.1 Rheumatic disorders of both mitral and tricuspid valves; E87.6 Hypokalemia; R42 Dizziness and giddiness; Z87.74 Personal history of (corrected) congenital malformations of heart and circulatory system; Z95.2 Presence of prosthetic heart valve
CPT/HCPCS: 33249; 71010; 71046; 78452; 80048; 80053; 82550; 82552; 83690; 83735; 83880; 84100; 84484; 85025; 85610; 85730; 92960; 93005; 93017; 93306; 93620; 96361; 96374; 96375; A9502; C1722; C1730; C1777; J0153; J0282; J2250; J2785; J7040